=== PATIENT | male | born 1955 | race Caucasian/White ===

== ENCOUNTER 2020-04-14 10:39 | Outpatient (CLI) | payer MEDICARE, OTHER, SELFPAY ==
[2020-04-14 11:24] LABS: Blood Urea Nitrogen 28 mg/dL (9-20); Carbon Dioxide 27 mmol/L (22-30); Chloride 105 mmol/L (98-107); Estimated Glomerular Filt Rate > 60; Glucose 136 mg/dL (75-110); Potassium 3.6 mmol/L (3.4-5.0); Sodium 141 mmol/L (137-145)
[2020-04-14 11:33] LABS: Hemoglobin A1C 6.9 % (<5.7)
== END 2020-04-14 10:40 | disposition home or self-care (01) ==
PROVIDERS: PCP Internal Medicine; Visit Provider Internal Medicine
DX: E11.9 Type 2 diabetes mellitus without complications (principal)
CPT/HCPCS: 36415; 80048; 83036

== ENCOUNTER 2020-08-01 10:57 | Outpatient (CLI) | payer MEDICARE, SELFPAY ==
[2020-08-01 11:43] LABS: Basophils Percent Auto 0.4 % (0.2-1.2); Eosinophils Absolute Auto 0.1 K/mm3 (0-0.3); Eosinophils Percent Auto 2.6 % (0-4.4); Hematocrit 44.5 % (42.0-52.0); Hemoglobin 15.1 g/dL (14.0-18.0); Immature Granulocyte Absolute 0.02 K/mm3 (0.00-0.031); Immature Granulocyte Percent A 0.4 % (0-0.5); Lymphocytes Absolute Auto 0.91 K/mm3 (0.9-3.2); Lymphocytes Percent Auto 16.7 % (18.3-44.2); Mean Corpuscular HGB Conc 33.9 g/dl (32-36); Mean Corpuscular Hemoglobin 31.4 pg (26-34); Mean Corpuscular Volume 92.5 fl (80-100); Mean Platelet Volume 10.6 fl (7.4-10.4); Monocytes Absolute Auto 0.5 K/mm3 (0.1-0.6); Monocytes Percent Auto 8.2 % (2.6-8.5); Neutrophils Absolute Auto 3.9 K/mm3 (1.3-6.7); Neutrophils Percent Auto 71.7 % (45.5-73.1); Platelet Count Result 198 k/mm3 (150-375); Red Blood Count 4.81 M/mm3 (4.6-6.20); Red Cell Distribution Width 12.7 % (11.5-14.5); White Blood Count 5.5 K/mm3 (4.5-10.0)
[2020-08-01 11:51] LABS: Hemoglobin A1C 6.3 % (<5.7)
[2020-08-01 11:54] LABS: Alanine Aminotransferase 24 U/L (4-50); Albumin Level 4.3 g/dL (3.5-5.1); Alkaline Phosphatase 73 U/L (38-126); Anion Gap 6 mmol/L (8-16); Aspartate Amino Transferase 26 U/L (17-59); Bilirubin,Total 0.9 mg/dL (0.2-1.3); Blood Urea Nitrogen 16 mg/dL (9-20); Calcium 9.8 mg/dL (8.4-10.2); Carbon Dioxide 35 mmol/L (22-30); Chloride 102 mmol/L (98-107); Cholesterol 84 mg/dL (0-200); Estimated Glomerular Filt Rate > 60; Glucose 134 mg/dL (75-110); HDL Direct 27 mg/dL; Sodium 143 mmol/L (137-145); Triglycerides 108 mg/dL (<150)
[2020-08-01 12:05] LABS: LDL Cholesterol Direct 40 mg/dL
[2020-08-01 12:32] LABS: Creatinine Urine 55.8 mg/dL
[2020-08-01 12:38] LABS: MALB Creatinine Ratio 16.5 mg/g (0-30); Microalbumin Urine Random 9.2 mg/L (0-16.7)
== END 2020-08-01 10:58 | disposition home or self-care (01) ==
PROVIDERS: PCP Internal Medicine; Visit Provider Clinical Nurse Specialist
DX: E11.9 Type 2 diabetes mellitus without complications (principal); I10 Essential (primary) hypertension
CPT/HCPCS: 36415; 80053; 80061; 82043; 83036; 85025

== ENCOUNTER 2020-11-10 09:53 | Outpatient (CLI) | payer MEDICARE, SELFPAY ==
[2020-11-10 10:34] LABS: Creatinine Urine 116.9 mg/dL; Total Protein Urine Random 9 mg/dL; Ur Ttl Prot Creatinine Ratio 0.08 mg/mg (0-0.20)
[2020-11-10 10:54] LABS: Albumin Level 4.3 g/dL (3.5-5.1); Anion Gap 7 mmol/L (8-16); Blood Urea Nitrogen 15 mg/dL (9-20); Calcium 9.1 mg/dL (8.4-10.2); Carbon Dioxide 33 mmol/L (22-30); Chloride 103 mmol/L (98-107); Estimated Glomerular Filt Rate > 60; Glucose 142 mg/dL (75-110); Phosphorus 3.9 mg/dL (2.5-4.5); Potassium 3.5 mmol/L (3.4-5.0); Sodium 143 mmol/L (137-145)
[2020-11-10 12:53] LABS: Hemoglobin A1C 6.8 % (<5.7)
== END 2020-11-10 09:54 | disposition home or self-care (01) ==
LOC: ANHLAB 09:54
PROVIDERS: PCP Internal Medicine; Visit Provider Nurse Practitioner
DX: E11.9 Type 2 diabetes mellitus without complications (principal); N28.1 Cyst of kidney, acquired; I10 Essential (primary) hypertension
CPT/HCPCS: 36415; 80069; 82570; 83036; 84156

== ENCOUNTER 2021-02-13 08:40 | Outpatient (CLI) | payer MEDICARE, SELFPAY ==
[2021-02-13 09:43] LABS: Hemoglobin A1C 6.5 % (<5.7)
== END 2021-02-13 08:41 | disposition home or self-care (01) ==
PROVIDERS: PCP Internal Medicine; Referring Provider Internal Medicine Nephrology; Visit Provider Internal Medicine
DX: E11.9 Type 2 diabetes mellitus without complications (principal)
CPT/HCPCS: 36415; 83036

== ENCOUNTER 2021-05-21 11:32 | Outpatient (CLI) | payer MEDICARE, SELFPAY ==
[2021-05-21 12:14] LABS: Hematocrit 46.7 % (42.0-52.0); Hemoglobin 15.3 g/dL (14.0-18.0); Mean Corpuscular HGB Conc 32.8 g/dl (32-36); Mean Corpuscular Hemoglobin 30.2 pg (26-34); Mean Corpuscular Volume 92.1 fl (80-100); Mean Platelet Volume 11.1 fl (7.4-10.4); Platelet Count Result 168 k/mm3 (150-375); Red Blood Count 5.07 M/mm3 (4.6-6.20); Red Cell Distribution Width 13.4 % (11.5-14.5); White Blood Count 6.2 K/mm3 (4.5-10.0)
[2021-05-21 12:35] LABS: Blood Urea Nitrogen 21 mg/dL (9-20); Calcium 9.4 mg/dL (8.4-10.2); Chloride 104 mmol/L (98-107); Estimated Glomerular Filt Rate > 60; Glucose 113 mg/dL (65-110); Potassium 4.5 mmol/L (3.4-5.0); Sodium 139 mmol/L (137-145)
[2021-05-21 18:04] LABS: Hemoglobin A1C 6.5 % (<5.7)
[2021-05-21 21:50] LABS: Anion Gap 3 mmol/L (8-16); Carbon Dioxide 32 mmol/L (22-30)
[2021-05-21 22:16] LABS: Prostate Specific Antigen 1.9 ng/mL (< OR = 4.0)
== END 2021-05-21 11:33 | disposition home or self-care (01) ==
LOC: ANHLAB 11:36
PROVIDERS: PCP Internal Medicine; Visit Provider Internal Medicine
DX: E11.9 Type 2 diabetes mellitus without complications (principal); Z12.5 Encounter for screening for malignant neoplasm of prostate; I10 Essential (primary) hypertension
CPT/HCPCS: 36415; 80048; 83036; 84153; 85027; G0103

== ENCOUNTER 2021-06-07 10:13 | Outpatient (CLI) | payer MEDICARE, SELFPAY ==
[2021-06-07 11:27] LABS: Cholesterol 95 mg/dL (0-200); HDL Direct 34 mg/dL; Triglycerides 83 mg/dL (<150)
[2021-06-07 11:39] LABS: LDL Cholesterol Direct 37 mg/dL
== END 2021-06-07 10:14 | disposition home or self-care (01) ==
PROVIDERS: PCP Internal Medicine; Visit Provider Clinical Nurse Specialist
DX: E78.49 Other hyperlipidemia (principal)
CPT/HCPCS: 36415; 80061

== ENCOUNTER 2021-08-22 09:02 | Outpatient (CLI) | payer MEDICARE, SELFPAY ==
[2021-08-22 10:01] LABS: Anion Gap 8 mmol/L (8-16); Blood Urea Nitrogen 20 mg/dL (9-20); Calcium 8.9 mg/dL (8.4-10.2); Carbon Dioxide 29 mmol/L (22-30); Chloride 102 mmol/L (98-107); Estimated Glomerular Filt Rate > 60; Glucose 115 mg/dL (65-110); Phosphorus 3.8 mg/dL (2.5-4.5); Potassium 3.5 mmol/L (3.4-5.0); Sodium 139 mmol/L (137-145)
[2021-08-22 10:24] LABS: Total Protein Urine Random < 5 mg/dL
[2021-08-22 11:05] LABS: Creatinine Urine 142.8 mg/dL
[2021-08-22 11:53] LABS: Ur Ttl Prot Creatinine Ratio < 0.04 mg/mg (0-0.20)
== END 2021-08-22 09:03 | disposition home or self-care (01) ==
LOC: ANHLAB 09:05
PROVIDERS: PCP Internal Medicine; Visit Provider Internal Medicine
DX: N28.1 Cyst of kidney, acquired (principal); I10 Essential (primary) hypertension; E11.9 Type 2 diabetes mellitus without complications
CPT/HCPCS: 36415; 80069; 82570; 84156

== ENCOUNTER 2021-11-28 11:40 | Outpatient (CLI) | payer MEDICARE, SELFPAY ==
[2021-11-28 13:07] LABS: Hemoglobin A1C 6.9 % (<5.7)
== END 2021-11-28 11:41 | disposition home or self-care (01) ==
PROVIDERS: PCP Internal Medicine; Visit Provider Internal Medicine
DX: E11.9 Type 2 diabetes mellitus without complications (principal)
CPT/HCPCS: 36415; 83036

== ENCOUNTER 2022-05-28 11:59 | Outpatient (CLI) | payer MEDICARE, SELFPAY ==
[2022-05-28 13:10] LABS: Basophils Percent Auto 0.3 % (0.2-1.2); Eosinophils Absolute Auto 0.2 K/mm3 (0-0.3); Eosinophils Percent Auto 2.8 % (0-4.4); Hematocrit 44.5 % (42.0-52.0); Hemoglobin 15.1 g/dL (14.0-18.0); Immature Granulocyte Absolute 0.03 K/mm3 (0.00-0.031); Immature Granulocyte Percent A 0.5 % (0-0.5); Lymphocytes Percent Auto 16.2 % (18.3-44.2); Mean Corpuscular HGB Conc 33.9 g/dl (32-36); Mean Corpuscular Hemoglobin 31.1 pg (26-34); Mean Corpuscular Volume 91.8 fl (80-100); Mean Platelet Volume 11.2 fl (7.4-10.4); Monocytes Absolute Auto 0.5 K/mm3 (0.1-0.6); Monocytes Percent Auto 8.3 % (2.6-8.5); Neutrophils Absolute Auto 4.5 K/mm3 (1.3-6.7); Neutrophils Percent Auto 71.9 % (45.5-73.1); Platelet Count Result 188 k/mm3 (150-375); Red Blood Count 4.85 M/mm3 (4.6-6.20); Red Cell Distribution Width 12.8 % (11.5-14.5); White Blood Count 6.2 K/mm3 (4.5-10.0)
[2022-05-28 13:23] LABS: Alanine Aminotransferase 26 U/L (6-50); Albumin Level 4.2 g/dL (3.5-5.1); Alkaline Phosphatase 81 U/L (38-126); Anion Gap 8 mmol/L (8-16); Aspartate Amino Transferase 23 U/L (17-59); Bilirubin,Total 0.8 mg/dL (0.2-1.3); Blood Urea Nitrogen 16 mg/dL (9-20); Calcium 9.5 mg/dL (8.4-10.2); Carbon Dioxide 31 mmol/L (22-30); Chloride 99 mmol/L (98-107); Cholesterol 76 mg/dL (0-200); Estimated Glomerular Filt Rate > 60; Glucose 163 mg/dL (65-110); HDL Direct 31 mg/dL; Potassium 3.6 mmol/L (3.4-5.0); Sodium 138 mmol/L (137-145); Triglycerides 64 mg/dL (<150)
[2022-05-28 13:29] LABS: Creatinine Urine 79.1 mg/dL; Total Protein Urine Random 6 mg/dL; Ur Ttl Prot Creatinine Ratio 0.08 mg/mg (0-0.20)
[2022-05-28 13:37] LABS: Albumin Level 4.3 g/dL (3.5-5.1); Anion Gap 10 mmol/L (8-16); Blood Urea Nitrogen 16 mg/dL (9-20); Calcium 9.3 mg/dL (8.4-10.2); Carbon Dioxide 31 mmol/L (22-30); Chloride 99 mmol/L (98-107); Estimated Glomerular Filt Rate > 60; Glucose 163 mg/dL (65-110); Potassium 3.6 mmol/L (3.4-5.0); Sodium 140 mmol/L (137-145)
[2022-05-28 13:38] LABS: LDL Cholesterol Direct < 30 mg/dL
[2022-05-28 13:40] LABS: Hemoglobin A1C 7.4 % (<5.7)
== END 2022-05-28 12:00 | disposition home or self-care (01) ==
PROVIDERS: PCP Internal Medicine; Referring Provider Internal Medicine Nephrology; Visit Provider Internal Medicine
DX: I10 Essential (primary) hypertension (principal); N28.1 Cyst of kidney, acquired; E11.9 Type 2 diabetes mellitus without complications; Z12.5 Encounter for screening for malignant neoplasm of prostate
CPT/HCPCS: 36415; 80053; 80061; 80069; 82570; 83036; 84153; 84156; 85025; G0103

== ENCOUNTER 2022-09-16 11:03 | Outpatient (CLI) | payer MEDICARE, SELFPAY ==
[2022-09-16 11:58] LABS: Hemoglobin A1C 8.6 % (<5.7)
== END 2022-09-16 11:04 | disposition home or self-care (01) ==
PROVIDERS: PCP Internal Medicine; Visit Provider Internal Medicine
DX: E11.9 Type 2 diabetes mellitus without complications (principal)
CPT/HCPCS: 36415; 83036

== ENCOUNTER 2022-11-19 10:47 | Outpatient (CLI) | payer MEDICARE, SELFPAY ==
[2022-11-19 11:07] LABS: Creatinine Urine 150.7 mg/dL; Total Protein Urine Random 12 mg/dL; Ur Ttl Prot Creatinine Ratio 0.08 mg/mg (0-0.20)
[2022-11-19 11:12] LABS: Albumin Level 4.5 g/dL (3.5-5.1); Anion Gap 7 mmol/L (8-16); Blood Urea Nitrogen 13 mg/dL (9-20); Calcium 9.1 mg/dL (8.4-10.2); Carbon Dioxide 30 mmol/L (22-30); Chloride 103 mmol/L (98-107); Estimated Glomerular Filt Rate > 60; Glucose 170 mg/dL (65-110); Phosphorus 4.1 mg/dL (2.5-4.5); Potassium 3.5 mmol/L (3.4-5.0); Sodium 140 mmol/L (137-145)
== END 2022-11-19 10:48 | disposition home or self-care (01) ==
LOC: ANHLAB 10:48
PROVIDERS: PCP Internal Medicine; Visit Provider Internal Medicine Nephrology
DX: Q61.3 Polycystic kidney, unspecified (principal)
CPT/HCPCS: 36415; 80069; 82570; 84156

== ENCOUNTER 2022-12-18 11:49 | Outpatient (CLI) | payer MEDICARE, SELFPAY ==
[2022-12-18 20:33] LABS: Hemoglobin A1C 7.4 % (<5.7)
== END 2022-12-18 11:50 | disposition home or self-care (01) ==
LOC: ANHGOSHLAB 11:50
PROVIDERS: PCP Internal Medicine; Visit Provider Nurse Practitioner
DX: E11.9 Type 2 diabetes mellitus without complications (principal)
CPT/HCPCS: 36415; 83036

== ENCOUNTER 2023-03-26 08:12 | Outpatient (CLI) | payer MEDICARE, SELFPAY ==
[2023-03-26 17:37] LABS: Basophils Percent Auto 0.2 % (0.2-1.2); Eosinophils Absolute Auto 0.2 K/mm3 (0-0.3); Eosinophils Percent Auto 2.9 % (0-4.4); Hematocrit 43.8 % (42.0-52.0); Hemoglobin 14.8 g/dL (14.0-18.0); Immature Granulocyte Absolute 0.02 K/mm3 (0.00-0.031); Immature Granulocyte Percent A 0.4 % (0-0.5); Lymphocytes Absolute Auto 0.77 K/mm3 (0.9-3.2); Lymphocytes Percent Auto 14.1 % (18.3-44.2); Mean Corpuscular HGB Conc 33.8 g/dl (32-36); Mean Corpuscular Hemoglobin 30.6 pg (26-34); Mean Corpuscular Volume 90.7 fl (80-100); Mean Platelet Volume 11.2 fl (7.4-10.4); Monocytes Absolute Auto 0.4 K/mm3 (0.1-0.6); Neutrophils Absolute Auto 4.1 K/mm3 (1.3-6.7); Neutrophils Percent Auto 74.4 % (45.5-73.1); Platelet Count Result 209 k/mm3 (150-375); Red Blood Count 4.83 M/mm3 (4.6-6.20); Red Cell Distribution Width 12.9 % (11.5-14.5); White Blood Count 5.5 K/mm3 (4.5-10.0)
[2023-03-26 20:26] LABS: Albumin Level 3.9 g/dL (3.5-5.1); Anion Gap 6 mmol/L (8-16); Blood Urea Nitrogen 21 mg/dL (9-20); Calcium 8.9 mg/dL (8.4-10.2); Carbon Dioxide 31 mmol/L (22-30); Chloride 102 mmol/L (98-107); Estimated Glomerular Filt Rate > 60; Glucose 111 mg/dL (65-110); Phosphorus 3.9 mg/dL (2.5-4.5); Potassium 3.2 mmol/L (3.4-5.0); Sodium 139 mmol/L (137-145)
[2023-03-26 20:47] LABS: Alanine Aminotransferase 20 U/L (6-50); Albumin Level 3.9 g/dL (3.5-5.1); Alkaline Phosphatase 71 U/L (38-126); Anion Gap 9 mmol/L (8-16); Aspartate Amino Transferase 24 U/L (17-59); Bilirubin,Total 0.7 mg/dL (0.2-1.3); Blood Urea Nitrogen 21 mg/dL (9-20); Calcium 8.8 mg/dL (8.4-10.2); Carbon Dioxide 28 mmol/L (22-30); Chloride 102 mmol/L (98-107); Cholesterol 67 mg/dL (0-200); Estimated Glomerular Filt Rate > 60; Glucose 114 mg/dL (65-110); HDL Direct 25 mg/dL; Potassium 3.2 mmol/L (3.4-5.0); Sodium 139 mmol/L (137-145); Triglycerides 93 mg/dL (<150)
[2023-03-26 21:42] LABS: Creatinine Urine 105.6 mg/dL
[2023-03-26 22:02] LABS: Total Protein Urine Random < 5 mg/dL; Ur Ttl Prot Creatinine Ratio < 0.05 mg/mg (0-0.20)
[2023-03-26 22:04] LABS: LDL Cholesterol Direct 30 mg/dL
[2023-03-26 22:17] LABS: Hemoglobin A1C 5.9 % (<5.7)
== END 2023-03-26 08:13 | disposition home or self-care (01) ==
LOC: ANHGOSHLAB 08:14
PROVIDERS: Internal Medicine Nephrology; PCP Internal Medicine; Visit Provider Internal Medicine
DX: E11.65 Type 2 diabetes mellitus with hyperglycemia (principal); I10 Essential (primary) hypertension; N28.1 Cyst of kidney, acquired
CPT/HCPCS: 36415; 80053; 80061; 80069; 82570; 83036; 84156; 85025

== ENCOUNTER 2023-06-13 09:13 | Outpatient (CLI) | payer MEDICARE, SELFPAY ==
[2023-06-13 09:53] LABS: Albumin Level 3.8 g/dL (3.5-5.1); Anion Gap 8 mmol/L (8-16); Blood Urea Nitrogen 18 mg/dL (9-20); Calcium 8.7 mg/dL (8.4-10.2); Carbon Dioxide 29 mmol/L (22-30); Chloride 102 mmol/L (98-107); Estimated Glomerular Filt Rate > 60; Glucose 123 mg/dL (65-110); Phosphorus 3.7 mg/dL (2.5-4.5); Potassium 3.3 mmol/L (3.4-5.0); Sodium 139 mmol/L (137-145)
[2023-06-13 10:16] LABS: Creatinine Urine 126.1 mg/dL
[2023-06-13 10:18] LABS: Total Protein Urine Random < 5 mg/dL; Ur Ttl Prot Creatinine Ratio < 0.04 mg/mg (0-0.20)
== END 2023-06-13 09:14 | disposition home or self-care (01) ==
PROVIDERS: PCP Internal Medicine; Visit Provider Internal Medicine Nephrology
DX: I10 Essential (primary) hypertension (principal); N28.1 Cyst of kidney, acquired
CPT/HCPCS: 36415; 80069; 82570; 84156

== ENCOUNTER 2023-12-19 11:05 | Outpatient (CLI) | payer MEDICARE, SELFPAY ==
[2023-12-19 14:36] LABS: Albumin Level 3.8 g/dL (3.5-5.1); Anion Gap 2 mmol/L (8-16); Blood Urea Nitrogen 16 mg/dL (9-20); Carbon Dioxide 34 mmol/L (22-30); Chloride 105 mmol/L (98-107); Estimated Glomerular Filt Rate > 60; Glucose 118 mg/dL (65-110); Phosphorus 3.8 mg/dL (2.5-4.5); Potassium 3.9 mmol/L (3.4-5.0); Sodium 141 mmol/L (137-145)
[2023-12-19 14:42] LABS: Alanine Aminotransferase 24 U/L (6-50); Albumin Level 3.8 g/dL (3.5-5.1); Alkaline Phosphatase 83 U/L (38-126); Anion Gap 4 mmol/L (8-16); Aspartate Amino Transferase 50 U/L (17-59); Bilirubin,Total 0.8 mg/dL (0.2-1.3); Blood Urea Nitrogen 16 mg/dL (9-20); Calcium 9.2 mg/dL (8.4-10.2); Carbon Dioxide 32 mmol/L (22-30); Chloride 105 mmol/L (98-107); Cholesterol 65 mg/dL (0-200); Estimated Glomerular Filt Rate > 60; Glucose 120 mg/dL (65-110); HDL Direct 28 mg/dL; Magnesium 2.1 mg/dL (1.6-2.3); Sodium 141 mmol/L (137-145); Triglycerides 65 mg/dL (<150)
[2023-12-19 14:50] LABS: Basophils Percent Auto 0.5 % (0.2-1.2); Eosinophils Absolute Auto 0.3 K/mm3 (0-0.3); Eosinophils Percent Auto 4.5 % (0-4.4); Hematocrit 45.7 % (42.0-52.0); Hemoglobin 14.9 g/dL (14.0-18.0); Immature Granulocyte Absolute 0.03 K/mm3 (0.00-0.031); Immature Granulocyte Percent A 0.5 % (0-0.5); Lymphocytes Absolute Auto 0.85 K/mm3 (0.9-3.2); Lymphocytes Percent Auto 14.3 % (18.3-44.2); Mean Corpuscular HGB Conc 32.6 g/dl (32-36); Mean Corpuscular Hemoglobin 30.7 pg (26-34); Mean Corpuscular Volume 94.2 fl (80-100); Monocytes Absolute Auto 0.6 K/mm3 (0.1-0.6); Monocytes Percent Auto 9.9 % (2.6-8.5); Neutrophils Absolute Auto 4.2 K/mm3 (1.3-6.7); Neutrophils Percent Auto 70.3 % (45.5-73.1); Platelet Count Result 203 k/mm3 (150-375); Red Blood Count 4.85 M/mm3 (4.6-6.20); Red Cell Distribution Width 13.1 % (11.5-14.5); White Blood Count 5.9 K/mm3 (4.5-10.0)
[2023-12-19 14:51] LABS: Creatinine Urine 79.1 mg/dL; Total Protein Urine Random 7 mg/dL; Ur Ttl Prot Creatinine Ratio 0.09 mg/mg (0-0.20)
[2023-12-19 15:08] LABS: Prostate Specific Antigen 2.7 ng/mL (< OR = 4.0)
[2023-12-19 15:44] LABS: LDL Cholesterol Direct 35 mg/dL
[2023-12-19 16:02] LABS: Hemoglobin A1C 6.1 % (<5.7)
[2023-12-25 20:36] LABS: Apolipoprotein B 35 mg/dL (<90)
== END 2023-12-19 11:06 | disposition home or self-care (01) ==
PROVIDERS: PCP Internal Medicine; Visit Provider Internal Medicine Nephrology
DX: E11.9 Type 2 diabetes mellitus without complications (principal); Z12.5 Encounter for screening for malignant neoplasm of prostate; I10 Essential (primary) hypertension; E87.6 Hypokalemia; E11.65 Type 2 diabetes mellitus with hyperglycemia; N28.1 Cyst of kidney, acquired
CPT/HCPCS: 36415; 80053; 80061; 80069; 82172; 82570; 83036; 83735; 84153; 84156; 85025; G0103

== ENCOUNTER 2024-07-06 10:17 | Outpatient (CLI) | payer MEDICARE, SELFPAY ==
[2024-07-06 14:11] LABS: Basophils Percent Auto 0.6 % (0.2-1.2); Eosinophils Absolute Auto 0.3 K/mm3 (0-0.3); Hemoglobin 15.2 g/dL (14.0-18.0); Immature Granulocyte Absolute 0.02 K/mm3 (0.00-0.031); Immature Granulocyte Percent A 0.3 % (0-0.5); Lymphocytes Absolute Auto 1.02 K/mm3 (0.9-3.2); Lymphocytes Percent Auto 14.7 % (18.3-44.2); Mean Corpuscular HGB Conc 32.3 g/dl (32-36); Mean Corpuscular Hemoglobin 30.5 pg (26-34); Mean Corpuscular Volume 94.2 fl (80-100); Mean Platelet Volume 10.9 fl (7.4-10.4); Monocytes Absolute Auto 0.6 K/mm3 (0.1-0.6); Monocytes Percent Auto 7.9 % (2.6-8.5); Neutrophils Percent Auto 72.5 % (45.5-73.1); Platelet Count Result 225 k/mm3 (150-375); Red Blood Count 4.99 M/mm3 (4.6-6.20); Red Cell Distribution Width 13.6 % (11.5-14.5); White Blood Count 6.9 K/mm3 (4.5-10.0)
[2024-07-06 14:19] LABS: Alanine Aminotransferase 20 U/L (6-50); Albumin Level 3.9 g/dL (3.5-5.1); Alkaline Phosphatase 75 U/L (38-126); Anion Gap 7 mmol/L (4-12); Aspartate Amino Transferase 55 U/L (17-59); Bilirubin,Total 0.7 mg/dL (0.2-1.3); Blood Urea Nitrogen 20 mg/dL (9-20); Calcium 9.1 mg/dL (8.4-10.2); Carbon Dioxide 31 mmol/L (22-30); Chloride 103 mmol/L (98-107); Estimated Glomerular Filt Rate > 60; Glucose 100 mg/dL (65-110); Potassium 3.2 mmol/L (3.4-5.0); Sodium 141 mmol/L (137-145)
[2024-07-06 16:00] LABS: Hemoglobin A1C 5.9 % (<5.7)
== END 2024-07-06 10:18 | disposition home or self-care (01) ==
PROVIDERS: PCP Internal Medicine; Visit Provider Internal Medicine
DX: E11.9 Type 2 diabetes mellitus without complications (principal); N28.1 Cyst of kidney, acquired; I10 Essential (primary) hypertension
CPT/HCPCS: 36415; 80053; 83036; 85025

== ENCOUNTER 2024-11-18 09:58 | Outpatient (CLI) | payer MEDICARE, SELFPAY ==
--- OUTSIDE RECORDS SUMMARY | 2024-11-18 10:28 | XMS_ITS | Referral Summary ---
Author Organization [facility] Orthopedic Outpa [facility] Address [address] [place] [address] Care Team Providers Care Tonguer Name Role Phone Loki Singh DO Primary Care Provider [phone] Allergies Active Allergy Reactions Criticality Noted Date Comments Nebivolol Itching,Unknown Low 11/28/2019 Medications amLODIPine (NORVASC) 5 mg tabletIndicatio ns:hypertension Take 5 mg by mouth every morning 0 Active atorvastatin (LIPITOR) 10 mg tabletIndicatio ns:hyperlipidem ia Take 10 mg by mouth every morning 0 Active hydroCHLOROthia zide (HYDRODIURIL) 25 mg tabletIndicatio ns:hypertension Take 25 mg by mouth every morning 0 Active losartan (COZAAR) 100 mg tablet Take 100 mg by mouth every morning 0 Active metFORMIN (GLUCOPHAGE) 1,000 mg tabletIndicatio ns:type 2 diabetes mellitus Take 1,000 mg by mouth daily with breakfast 6 Active multivitamin-mi nerals-lutein tablet Take 1 tablet by mouth every morning Active Active Problems Problem Noted Date Diagnosed Date Secondary localized osteoarthrosis of ankle and foot 01/14/2022 Osteoarthritis of hip 01/14/2022 Hypertension 01/14/2022 Hyperlipidemia 01/14/2022 Diabetes mellitus 01/14/2022 Autosomal dominant polycystic kidney disease 08/2022 Acquired polycystic kidney disease 01/14/2022 Primary localized osteoarthrosis of ankle and fo ot 08/27/2021 Disorder of ankle joint 11/28/2020 Overview (01/14/2022): Added automatically from request for surgery [id number] Added automatically from request for surgery [id number] Ankle pain 11/28/2020 Overview (01/14/2022): Added automatically from request for surgery [id number] Added automatically from request for surgery [id number] Viral wart 04/25/2016 Other melanin hyperpigmentation 04/25/2016 Nevus, non-neoplastic 04/25/2016 Neoplasm of uncertain behavior of skin 6 Inflamed seborrheic keratosis 04/25/2016 Immunizations Name Administration Dates Next Due Influenza, Unspecified 07/26/2020 Social History Tobacco Use Types Packs/Day Years Used Date Smoking Tobacco: Former Cigars Q uit: 2017 Smokeless Tobacco: Never Alcohol Use Standard Drinks/Week Comments Yes 0 (1 standard drink = 0.6 oz pur e alcohol) AUDIT-C Answer Date Recorded Q1: How often do you have a drink containing alc ohol? Never 12/19/2020 Q2: How many drinks containi ng alcohol do you have on a typical day when you are drinking? 1 or 2 12/19/2020 Q3: How often do you have six or more drinks on one occasion? 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 [employer] Gender Identity Not on file Sexual Orientation Not on file Last Filed Vital Signs Vital Sign Reading Time Taken Comments Blood Pressure 155/97 12/27/2020 8:43 AM CDT ELISE Reynolds notified Pulse 86 12/27/2020 8:43 AM CDT Temperature 36.2 C (97.2 F) 12/27/2020 8:15 AM CDT Respiratory Rate 16 12/27/2020 8:15 AM CDT Oxygen Saturation 97% 12/27/2020 8:4 3 AM CDT Inhaled Oxygen Concentration - - Weight 100.7 kg (222 lb) 07/11/2021 10: 35 AM CDT Height 182.9 cm (6') 07/11/2021 10:35 AM CDT Body Mass Index 30.11 07/11/2021 10:35 AM CDT Plan of Treatment Not on file Medical Devices Implanted Type Area Roving Frame Tender Device Identifier Shelf Expiration Date Model / Serial / Lot [employer] [id number] Inbone Knee Right 5 Standard Tray Tibial - S.0 - [id number] Implanted:Qty: 1 on 12/26/2020 by Kurt Veliz MD at [facility] [employer] 12/18/[id number] / .0 / [id number] [employer] [id number] Inbone 18mm Base Ankle Stem Tibial Plasma - S.0 - [id number] Implanted:Qty: 1 on 12/26/2020 by Kurt Veliz MD at [facility] [employer] 12/03/[id number] / .0 / [id number] [employer] [id number] Inbone 16mm Mid Ankle Stem Tibial Plasma - S.0 - [id number] Implanted:Qty: 1 on 12/26/2020 by Kurt Veliz MD at [facility] [employer] 07/23/[id number] / .0 / [id number] [employer] [id number] Inbone 16mm Mid Ankle Stem Tibial Plasma - S.0 - [id number] Implanted:Qty: 1 on 12/26/2020 by Kurt Veliz MD at [facility] [employer] 07/24/[id number] / .0 / [id number] [employer] [id number] Inbone 16mm Top Ankle Stem Tibial Plasma - S.0 - [id number] Implanted:Qty: 1 on 12/26/2020 by Kurt Veliz MD at [facility] Medicine [employer] 10/23/[id number] / .0 / [id number] [employer] [id number] Ankle 1 Large 10mm Stem Talar - S.0 - [id number] Implanted:Qty: 1 on 12/26/2020 by Kurt Veliz MD at [facility] [employer] [id number] 10/08/[id number] / .0 / [id number] [employer] [id number] Inbone Sulcus Ankle 4 Dome Component Talar - S.0 - [id number] Implanted:Qty: 1 on 12/26/2020 by Kurt Veliz MD at [facility] [employer] [id number] 10/26/[id number] / .0 / [id number] [employer] [id number] Inbone 12mm Ankle 4+ Implant Fixation Everlast - S.0 - [id number] Implanted:Qty: 1 on 12/26/2020 by Kurt Veliz MD at [facility] [employer] [id number] 01/01/[id number] / .0 / [id number] Procedures Procedure Name Priority Date/Time Associated Diagnosis Comments HEMOGLOBIN A1C Routine 12/19/2020 11:53 AM CDT Preoperative testing from Last 3 Months or Most Recently Relevant to Health Maintenance Results * (ABNORMAL) Hemoglobin A1c (12/19/2020 11:53 AM CDT) Hgb A1C 6.7(H) 4.0 - 5.6 % [facility] Estimated Average Glucose 146 mg/dL [facility] Comment: The ADA recommends reporting an estimated Average Glucose (eAG) with all Hemoglobin A1c results using the equation derived from a study of 507 normal and diabetic adults. Minority populations were underrepresented and children were not included. (Diabetes Care 31:6902-1590, 2008). The eAG is not equivalent to a fasting glucose. Blood specimen (specimen) 12/19/2020 11:53 AM CDT 12/19/2020 1:45 PM CDT Gladys Melgoza NP LAB BLOOD ORDERABLES Final Re sult [facility] Department [place] [address] from Last 3 Months or Most Recently Relevant to Health Maintenance Insurance [facility] MEDICARE AET MEDICARE Advance Directives For more information, please contact: [phone] * Full Code (Latest Code Status on File) Date Activated Date Inactivated Comments 12/26/2020 4:38 PM 12/27/2020 7:53 PM Care Teams Tonguer Relationship Specialty Start Date End Date Loki Singh DO PCP - General Internal Medicine 08/25/20
--- OUTSIDE RECORDS SUMMARY | 2024-11-18 10:28 | XMS_ITS | Clinical Summary ---
Author Organization [facility] Address [address] [place] [address] Phone Care Team Providers Care Cyber Operator Name Role Phone Loki Singh DO Primary Care Provider [phone] Allergies Active Allergy Reactions Criticality Noted Date Comments Nebivolol Unknown,Itching Low 11/28/2019 Medications Medication Sig Dispensed Refills Start Date End Date Status metFORMIN (GLUCOPHAGE) 1000 MG tablet 02/09/2016 Active atorvastatin (LIPITOR) 10 MG tablet Take 10 mg by mouth 1 (one) time each day Active hydroCHLOROthiazide (HYDRODIURIL) 25 MG tablet Take 25 mg by mouth 1 (one) time each day Active amLODIPine (NORVASC) 5 MG tablet Take 5 mg by mouth 1 (one) time each day 01/04/2020 Active losartan (COZAAR) 50 MG tablet Take 100 mg by mouth 1 (one) time each day 04/30/2022 Active Active Problems Problem Noted Date Diagnosed Date Counseling 08/27/2021 Localized, primary osteoarthritis of the ankle a nd/or foot 08/27/2021 Pain in limb 08/27/2021 Ankle pain 11/28/2020 Overview (02/14/2021): Added automatically from request for surgery [id number] Disorder of ankle joint 11/28/2020 Overview (02/14/2021): Added automatically from request for surgery [id number] Inflamed seborrheic keratosis 04/25/2016 Neoplasm of uncertain behavior of skin 6 Non-neoplastic nevus 04/25/2016 Other melanin hyperpigmentation 04/25/2016 Other seborrheic keratosis 04/25/2016 Viral wart 04/25/2016 Autosomal dominant polycystic kidney disease Diabetes mellitus Hyperlipidemia Hypertension Osteoarthritis Acquired polycystic kidney disease Immunizations Name Administration Dates Next Due Influenza, Injectable, Quadrivalent 06/20/2020 Influenza, Unspecified 07/26/2020 Sars-cov-2, Unspecified 03/27/2021 Family History Medical History Relation Comments Hypertension Father Hypertension Maternal Grandmother Polycystic kidney disease Neg Hx Relation Status Comments Father Maternal Grandmother Social History Tobacco Use Types Packs/Day Years Used Date Smoking Tobacco: Some Days Cigars Smokeless Tobacco: Never Tobacco Cessation:Ready to Q uit: No; Counseling Given: Yes Alcohol Use Standard Drinks/Week Comments Yes 0 (1 standard drink = 0.6 oz pur e alcohol) Sex and Gender Information Value Date Recorded Sex Assigned at Not on file Gender Identity Not on file Sexual Orientation Not on file Last Filed Vital Signs Vital Sign Reading Time Taken Comments Blood Pressure 130/70 06/05/2022 9:15 AM CDT Pulse - - Temperature 36.2 C (97.1 F) 06/05/2022 9:15 AM CDT Respiratory Rate 18 06/05/2022 9:15 AM CDT Oxygen Saturation - - Inhaled Oxygen Concentration - - Weight 105 kg (231 lb) 06/05/2022 9:15 AM CDT Height 185.4 cm (6' 1 ) 06/05/2022 9:15 AM CDT Body Mass Index 30.48 06/05/2022 9:15 AM CDT Plan of Treatment Health Maintenance Due Date Last Done Comments Pneumococcal PPSV23/PCV13 65 + Years / High and Highest Risk (1 of 4 - PCV) 1963 Diabetic Foot Exam 1967 Ophthalmology Exam 1967 Influenza Vaccine (#1) 2024 07/26/2020 Care Teams Cyber Operator Relationship Specialty Start Date End Date Loki Singh DO [address] [place] [address] PCP - General Internal Medicine 10/15/19
--- OUTSIDE RECORDS SUMMARY | 2024-11-18 10:28 | XMS_ITS | Clinical Summary ---
Author Organization [facility] Orthopedic Outpa [facility] Address [address] [place] [address] Care Team Providers Care Integration Director Name Role Phone Loki Singh DO Primary Care Provider [phone] Allergies Active Allergy Reactions Criticality Noted Date [...] (01/14/2022): Added automatically from request for surgery [id number] Added automatically from request for surgery [id number] Ankle pain 11/28/2020 Overview (01/14/2022): Added automatically from request for surgery [id number] Added automatically from request for surgery [id number] Viral wart 04/25/2016 Other melanin hyperpigmentation 04/25/2016 Nevus, non-neoplastic 04/25/2016 Neoplasm of uncertain behavior of skin 6 Inflamed seborrheic keratosis 04/25/2016 Immunizations Name Administration Dates Next Due Influenza, Unspecified 07/26/2020 Surgical History Surgery Date Site/Laterality Comments KNEE SURGERY Bilateral arthroplasty JOINT REPLACEMENT HIP SURGERY Right arthroplasty FOOT SURGERY COLONOSCOPY Medical History Medical History Date Comments Diabetes mellitus (HCC) Hypertension Chronic kidney disease DJD (degenerative joint disease) Hyperlipidemia 01/14/2022 Family History Medical History Relation Name Comments Anesthesia problems Neg Hx Social History Tobacco Use Types Packs/Day Years [...] on file 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 Gender Identity Not on file Sexual Orientation Not on file Obstetrics History Last Filed Vital Signs Vital Sign Reading [...] 07/11/2021 10:35 AM CDT Plan of Treatment Health Maintenance Due Date Last Done Comments Albumin Creatinine Ratio, Urine 1957 Colon Cancer Screening-Colonoscopy 1957 Depression Screening 1957 Fall Risk Assessment 1957 Hepatitis C Screening 1957 Prostate Cancer Screening-PSA 1957 eGFR 1957 Dilated Eye Exam 1957 Foot Exam 1957 Lipid Panel 1957 Pneumococcal vaccine 65+ (1 of 2 - PCV) 1963 DTaP/Tdap/Td Vaccine (1 - Tdap) 1968 Hepatitis B Screening 1975 Zoster Vaccine (1 of 2) 2007 Hemoglobin A1C 06/21/2021 12/19/2020 Abdominal Aortic Aneurysm (AAA) Screen 2022 Well Visit 65+ 2022 Influenza Vaccine (#1) 2024 07/26/2020, 2019 Medical Devices Implanted Type Area Advertising Inserter Device Identifier Shelf Expiration Date Model / Serial / Lot [employer] [id number] Inbone Knee Right 5 Standard Tray Tibial - S.0 - [id number] Implanted:Qty: 1 on 12/26/2020 by Kurt Veliz MD at [facility] [employer] 12/18/[id number] / .0 / [id number] [employer] [id number] Inbone 18mm Base Ankle Stem Tibial Plasma - S.0 - [id number] Implanted:Qty: 1 on 12/26/2020 by Kurt Veliz MD at [facility] [employer] 12/03/[id number] / .0 / [id number] [employer] [id number] Inbone 16mm Mid Ankle Stem Tibial Plasma - S.0 - [id number] Implanted:Qty: 1 on 12/26/2020 by Kurt Veliz MD at [facility] [employer] 07/23/[id number] / .0 / [id number] [employer] [id number] Inbone 16mm Mid Ankle Stem Tibial Plasma - S.0 - [id number] Implanted:Qty: 1 on 12/26/2020 by Kurt Veliz MD at [facility] [employer] 07/24/[id number] / .0 / [id number] [employer] [id number] Inbone 16mm Top Ankle Stem Tibial Plasma - S.0 - [id number] Implanted:Qty: 1 on 12/26/2020 by Kurt Veliz MD at [facility] [employer] 10/23/[id number] / .0 / [id number] [employer] [id number] Ankle 1 Large 10mm Stem Talar - S.0 - [id number] Implanted:Qty: 1 on 12/26/2020 by Kurt Veliz MD at [facility] [employer] [id number] 10/08/[id number] / .0 / [id number] [employer] [id number] Inbone Sulcus Ankle 4 Dome Component Talar - S.0 - [id number] Implanted:Qty: 1 on 12/26/2020 by Kurt Veliz MD at [facility] [employer] [id number] 10/26/[id number] / .0 / [id number] [employer] [id number] Inbone 12mm Ankle 4+ Implant Fixation Everlast - S.0 - [id number] Implanted:Qty: 1 on 12/26/2020 by Kurt Veliz MD at [facility] [email or web address] [facility] [id number] 01/01/2028 [id number] / .0 / [id number] Procedures Procedure Name Priority Date/Time Associated Diagnosis Comments HEMOGLOBIN A1C Routine 12/19/2020 11:53 AM CDT Preoperative testing from Last 3 Months or Most Recently Relevant to Health Maintenance Results * (ABNORMAL) Hemoglobin A1c (12/19/2020 11:53 AM CDT) Hgb A1C 6.7(H) 4.0 - 5.6 % [facility] Estimated Average Glucose 146 mg/dL [facility] Comment: The ADA recommends reporting an estimated Average Glucose (eAG) with all Hemoglobin A1c results using the equation derived from a study of 507 normal and diabetic adults. Minority populations were underrepresented and children were not included. (Diabetes Care 31:0540-5693, 2008). The eAG is not equivalent to a fasting glucose. Blood specimen (specimen) 12/19/2020 11:53 AM CDT 12/19/2020 1:45 PM CDT us Gladys Melgoza NP LAB BLOOD ORDERABLES Final Re sult [facility] Department [place] [address] from Last 3 Months or Most Recently Relevant to Health Maintenance [place] [address] [place] [address] AETNA MEDICARE Advance Directives For more information, please contact: [phone] * Full Code (Latest Code Status on File) Date Activated Date Inactivated Comments 12/26/2020 4:38 PM 12/27/2020 7:53 PM Care Teams Integration Director Relationship Specialty Start Date End Date Loki Singh DO PCP - General Internal Medicine 08/25/20
--- NOTE | 2024-11-18 10:55 | ECG_ITS ---
Test Date: 2024-11-18 11:07:12 Measurements Intervals [place] Rate: 65 P: 74 MO: 158 QRS: 10 QRSD: 121 T: 33 QT: 425 QTc: 442 Interpretive Statements SINUS RHYTHM RIGHT BUNDLE BRANCH BLOCK BASELINE ARTIFACT- I, II, III, AVR, AVL, AVF, V1-V6 ABNORMAL ECG No previous ECG available for comparison Electronically Signed On 11-18-2024 11:32:34 CHIEF OF HOSPITAL MEDICINE by Justice Nguyen D.O.
[2024-11-18 11:18] LABS: Basophils Percent Auto 0.3 % (0.2-1.2); Eosinophils Absolute Auto 0.1 K/mm3 (0-0.3); Eosinophils Percent Auto 1.7 % (0-4.4); Hematocrit 44.5 % (42.0-52.0); Hemoglobin 14.8 g/dL (14.0-18.0); Immature Granulocyte Absolute 0.02 K/mm3 (0.00-0.031); Immature Granulocyte Percent A 0.3 % (0-0.5); Lymphocytes Absolute Auto 0.75 K/mm3 (0.9-3.2); Lymphocytes Percent Auto 10.9 % (18.3-44.2); Mean Corpuscular HGB Conc 33.3 g/dl (32-36); Mean Corpuscular Hemoglobin 30.5 pg (26-34); Mean Corpuscular Volume 91.8 fl (80-100); Mean Platelet Volume 10.2 fl (7.4-10.4); Monocytes Absolute Auto 0.6 K/mm3 (0.1-0.6); Monocytes Percent Auto 8.9 % (2.6-8.5); Neutrophils Absolute Auto 5.4 K/mm3 (1.3-6.7); Neutrophils Percent Auto 77.9 % (45.5-73.1); Platelet Count Result 219 k/mm3 (150-375); Red Blood Count 4.85 M/mm3 (4.6-6.20); Red Cell Distribution Width 12.8 % (11.5-14.5); White Blood Count 6.9 K/mm3 (4.5-10.0)
[2024-11-18 11:28] LABS: Albumin Level 4.1 g/dL (3.5-5.1)
[2024-11-18 11:32] LABS: Anion Gap 7 mmol/L (4-12); Blood Urea Nitrogen 18 mg/dL (9-20); Calcium 9.3 mg/dL (8.4-10.2); Carbon Dioxide 32 mmol/L (22-30); Chloride 102 mmol/L (98-107); Estimated Glomerular Filt Rate > 60; Glucose 102 mg/dL (65-110); Potassium 3.8 mmol/L (3.4-5.0); Sodium 141 mmol/L (137-145)
[2024-11-18 11:33] LABS: Prothrombin Time 13.4 Seconds (11.1-14.7)
[2024-11-18 11:34] LABS: Partial Thromboplastin Time 30.2 Seconds (22.3-36.8)
[2024-11-18 11:35] LABS: Hemoglobin A1C 5.9 % (<5.7)
[2024-11-18 12:34] LABS: MRSA (PCR) NOT DETECTED (NOT DETECTE)
[2024-11-18 19:13] LABS: Urine Cotinine NEGATIVE
== END 2024-11-18 09:59 | disposition home or self-care (01) ==
PROVIDERS: Anesthesiology; PCP Internal Medicine; Visit Provider Orthopaedic Surgery
DX: Z01.818 Encounter for other preprocedural examination (principal); M16.12 Unilateral primary osteoarthritis, left hip; N28.1 Cyst of kidney, acquired; E11.65 Type 2 diabetes mellitus with hyperglycemia
CPT/HCPCS: 36415; 80048; 80307; 82040; 83036; 85025; 85610; 85730; 86850; 86900; 86901; 87641; 93005

== ENCOUNTER 2024-12-01 00:05 | Day surgery (SDC) | payer MEDICARE, SELFPAY ==
--- NOTE | 2024-11-18 10:03 | PC.NURSE ---
Report to the Outpatient Waiting Room, entrance under the green pavilion located off [facility], at time __6 AM____ on date _12/01/24 . Planned Procedure Time: __7:30 AM .? Time changes happen often and if your time is changed the preop area will call you the afternoon before. - You and your visitor will be asked to self-screen and do not enter if you have any COVID symptoms. Please call surgeon if you need to reschedule. - A mask is optional within the hospital at this time. Patients may have clear liquids (water, carbonated beverages, clear teas, apple juice) until 3 hours prior to surgery( 4:30 AM) with a maximum of 20 ounces. - No food from midnight until time of surgery and no smoking, or chewing tobacco (or any form of nicotine). No chewing gum, candy or mints. - Take only the following medications with a SIP of water on the morning of surgery: ___AMLODIPINE DO NOT STOP ANY OF YOUR OTHER PRESCRIPTION MEDICATIONS PRIOR TO SURGERY EXCEPT THE FOLLOWING Hold all vitamins and supplements for 3 days per anesthesiologist. LAST DOSE 11/27/24 Medications to discontinue per physician ___IBUPROFEN PER DR MAYA Please no make-up, nail latvian, hairspray, perfume, deodorant, or body powder the day of surgery.? No jewelry (including any body piercings) or valuables the day of surgery, leave them at home.? Please take a shower or bath the night before, or the morning of, surgery with an antibacterial soap.? Wear comfortable, loose fitting clothing.? Children are encouraged to wear pajamas. - Jewelry must be removed prior to entering the operating room.? Rings and piercings that are not removed may be cut off. - The hospital will not accept responsibility for valuables.? - Please leave all valuables, including medications, at home the day of surgery. If you are going home after surgery, a licensed sales driver must drive you home.? - NO public transportation without another adult if you receive anesthesia. - We recommend that an adult stay with you for 24 hours following discharge. - We also recommend that you do not drive, make important decision, drink alcoholic beverages, or take any drugs that were not prescribed by your health care provider for at least 24 hours after your discharge time. Follow any additional instructions given to you from your surgeon. VERBAL AND WRITTEN instructions given to __PATIENT and asked if any additional questions and then verbalized understanding. Patient advised to call surgeon office or pre surgery nurse liaison [phone] if any additional questions.
[2024-11-18 10:09] VITALS: BMI 26.4
[2024-11-18 10:55] VITALS: BP 146/91; PULSE 73; RESP 18; TEMP 36.7; O2SAT 97
--- NOTE | 2024-11-25 07:08 | P.HP_ITS ---
H&P: HPI History of Present Illness Date/Time: 11/25/24 07:08 Chief Complaint: Patient has painful left the hip. He has hgpa-[id number] arthritis of the left hip. He has failed conservative treatment and would like to consider hip replacement surgery. He has had hip replacement surgery on the right and done well. Review of Systems Musculoskeletal: Musculoskeletal: Reports arthralgias, Reports joint swelling and Reports stiffness Neurologic: Reports abnormal gait [facility] Past Medical History Medical History DM w/o complication type II Diabetes mellitus with hyperglycemia Essential hypertension Hyperlipidemia due to dietary fat intake Hypertension Polycystic kidney disease Diabetes mellitus Surgical History Surgical History Status post right ankle joint replacement History of ankle surgery (~12/26/20) Total knee replacement status Family History Family History Mother Patient's mother is in good health Social History Social History Smoking status: Never smoker Tobacco type: cigars Additional smoking assessment comments: SMOKED CIGARS. ONE A DAY FOR 10 YRS QUIT 11/2023. DENIES ANY FORM OF TOBACCO Alcohol intake: current Drinks per week: 3 Alcohol use details: BEER Substance use: current Last use: 11/11/24 PAIN CONTROL Do You Feel Safe in your Home?: Yes Lack of Transportation: No Lack of Food: Never True Current Housing: I Have Housing Concerned About Future Housing: No Difficulty Paying Gas/Electric Bills: No Difficulty Paying for Meds: No Currently Unemployed: No Education: High School Diploma/GED Difficulty w/ Childcare or Family Care: No Living arrangements: with family Gender identity (if verbalized by the patient): Male Spiritual care concerns: No Meds Home Medications and Allergies Home Medications ?Medication ?Instructions ?Recorded ?Confirmed ?Type semaglutide 14 mg tablet (Rybelsus) 14 mg PO DAILY #90 tabs 02/06/24 11/22/24 Rx amlodipine 5 mg tablet 5 mg PO DAILY #90 tabs 05/28/24 11/22/24 Rx atorvastatin 10 mg tablet 10 mg PO DAILY #90 tabs 05/28/24 11/22/24 Rx losartan 100 mg tablet 100 mg PO DAILY #90 tabs 05/28/24 11/22/24 Rx hydrochlorothiazide 25 mg tablet 25 mg PO DAILY #90 tabs 05/31/24 11/22/24 Rx potassium chloride 10 mEq 10 meq PO DAILY #90 caps 07/13/24 11/22/24 Rx capsule,extended release ibuprofen 200 mg tablet (Advil) 800 mg PO Q6H PRN pain 11/18/24 11/22/24 History multivitamin (Daily Multi-Vitamin 1 tablet PO DAILY 11/18/24 11/22/24 History tablet) Allergies Allergy/AdvReac Type Severity Reaction Status Date / Time nebivolol Allergy Mild Itching Verified 11/18/24 10:10 eyes Exam Narrative: On exam patient has pain with any manipulation of his left hip. Internal rotation is 0 external rotation about 20 he has a positive Stinchfield test and tenderness palpation and manipulation. He walks with an antalgic gait. Neurologically appears to be grossly intact. Eyes: General: appearance normal, both eyes and all related structures Neck: Neck: supple Resp: Effort & Inspection: normal respiratory effort Cardio: Rate: regular rate Rhythm: regular rhythm Assessment and Plan Assessment and plan (1) Osteoarthritis of left hip: Qualifiers: Osteoarthritis type: primary Qualified Code(s): M16.12 - Unilateral primary osteoarthritis, left hip Code(s): M16.12 - Unilateral primary osteoarthritis, left hip Status: Acute Assessment and Plan: Patient has an arthritic left hip. He would like to consider hip replacement surgery. He has had a hip replacement on the right hip and done well. I discussed treatment options with him risks benefits limitations and alternatives in detail. He understands and agrees. Will pursue total hip arthroplasty on the left per his request.
[2024-12-01] VITALS (19 sets, daily range): BP systolic 110–159; BP diastolic 79–93; PULSE 74–100; RESP 10–20; TEMP 36.1–37.2; O2SAT 93–100; BMI 25.9
--- NOTE | ~2024-12-01 | XR_ITS ---
EXAMINATION: XR surgery orthopedic DATE: 12/01/2024 09:26 INDICATION: Intraoperative evaluation during left total hip arthroplasty TECHNIQUE: 2 frontal views of the left hip was obtained. COMPARISON: 10/21/2024 FINDINGS: Intraoperative image during a left total hip arthroplasty demonstrate placement of an acetabular comp onent affixed with at least a single screw and which appears in near anatomic alignment on the single image provided. A femoral broach is in place with the proximal tip centered over the acetabular com ponent. Subsequent image demonstrates replacement of the broach with a noncemented femoral component. The left total hip arthroplasty with a prior right total hip arthroplasty are both in near-anatomic alignment. Portions of the pelvis are obscured by a bolster. No fractures in the visualized bones. Truong rgical clips and expected soft tissue gas at the operative bed. A partially visualized hemostat proje cts over the upper pelvis, remote from the operative bed and likely external to the patient. IMPRESSION: 1. Expected appearance during left total hip arthroplasty. Reviewed, dictated and finalized at [facility]
--- OUTSIDE RECORDS SUMMARY | 2024-12-01 00:10 | XMS_ITS | Clinical Summary ---
Author Organization [facility] Address [address] [place] [address] Phone Care Team Providers Care Rate Quoting Operator Name Role Phone Loki Singh DO Primary Care Provider [phone] Allergies Active Allergy Reactions Criticality Noted Date [...] (02/14/2021): Added automatically from request for surgery [id number] Disorder of ankle joint 11/28/2020 Overview (02/14/2021): Added automatically from request for surgery [id number] Inflamed seborrheic keratosis 04/25/2016 Neoplasm of uncertain [...] Risk (1 of 4 - PCV) 1963 Influenza Vaccine (#1) 2024 07/26/2020 Care Teams Rate Quoting Operator Relationship Specialty Start Date End Date Loki Singh DO [address] [place] [address] PCP - General Internal Medicine 10/15/19
--- OUTSIDE RECORDS SUMMARY | 2024-12-01 00:10 | XMS_ITS | Referral Summary ---
Author Organization [facility] Orthopedic Outpa [facility] Address [address] [place] [address] Care Team Providers Care Reservations Sales Agent Name Role Phone Loki Singh DO Primary Care Provider [phone] Allergies Active Allergy Reactions Criticality Noted Date [...] (01/14/2022): Added automatically from request for surgery [id number] Added automatically from request for surgery [id number] Ankle pain 11/28/2020 Overview (01/14/2022): Added automatically from request for surgery [id number] Added automatically from request for surgery [id number] Viral wart 04/25/2016 Other melanin hyperpigmentation 04/25/2016 Nevus, non-neoplastic 04/25/2016 Neoplasm of uncertain behavior of skin 6 Inflamed seborrheic keratosis 04/25/2016 Immunizations Immunization Administration Dates Next Due Influenza, Unspecified 07/26/2020 [...] on file 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 Gender Identity Not on file Sexual Orientation [...] on file Medical Devices Implanted Type Area Dockmaster Device Identifier Shelf Expiration Date Model / Serial / Lot [id number] Inbone Knee Right 5 Standard Tray Tibial - S.0 - [id number] Implanted:Qty: 1 on 12/26/2020 by Kurt Veliz MD at [facility] [employer] 12/18/[id number] / .0 / [id number] [employer] [id number] Inbone 18mm Base Ankle Stem Tibial Plasma - S.0 - [id number] Implanted:Qty: 1 on 12/26/2020 by Kurt Veliz MD at [facility] Medicine [employer] 12/03/[id number] / .0 / [id number] [employer] [id number] Inbone 16mm Mid Ankle Stem Tibial Plasma - S.0 - [id number] Implanted:Qty: 1 on 12/26/2020 by Kurt Veliz MD at [facility] [employer] 07/23/[id number] / .0 / [id number] [employer] [id number] Inbone 16mm Mid Ankle Stem Tibial Plasma - S.0 - [id number] Implanted:Qty: 1 on 12/26/2020 by Kurt Veliz MD at [facility] [employer] 07/24/[id number] / .0 / [id number] [employer] [id number] Inbone 16mm Top Ankle Stem Tibial Plasma - S.0 - [id number] Implanted:Qty: 1 on 12/26/2020 by Kurt Veliz MD at [facility] Medicine [employer] 10/23/[id number] / .0 / [id number] [employer] [id number] Ankle 1 Large 10mm Stem Talar - S.0 - [id number] Implanted:Qty: 1 on 12/26/2020 by Kurt Veliz MD at [facility] [employer] [id number] 10/08/[id number] / .0 / [id number] [employer] [id number] Inbone Sulcus Ankle 4 Dome Component Talar - S.0 - [id number] Implanted:Qty: 1 on 12/26/2020 by Kurt Veliz MD at [facility] [employer] [id number] 10/26/[id number] / .0 / [id number] [employer] [id number] Inbone 12mm Ankle 4+ Implant Fixation Everlast - S.0 - [id number] Implanted:Qty: 1 on 12/26/2020 by Kurt Veliz MD at [facility] [employer] [id number] 01/01/202838389990 / .0 / [id number] Procedures Procedure Name Priority Date/Time Associated Diagnosis Comments HEMOGLOBIN A1C Routine 12/19/2020 11:53 AM CDT Preoperative testing from Last 3 Months or Most Recently Relevant to Health Maintenance Results * (ABNORMAL) Hemoglobin A1c (12/19/2020 11:53 AM CDT) Hgb A1C 6.7(H) 4.0 - 5.6 % ÁLVARO [facility] Estimated Average Glucose 146 mg/dL [facility] Comment: The ADA recommends reporting an estimated Average Glucose (eAG) with all Hemoglobin A1c results using the equation derived from a study of 507 normal and diabetic adults. Minority populations were underrepresented and children were not included. (Diabetes Care 31:3737-6873, 2008). The eAG is not equivalent to a fasting glucose. Blood specimen (specimen) 12/19/2020 11:53 AM CDT 12/19/2020 1:45 PM CDT Gladys Melgoza NP LAB BLOOD ORDERABLES Final Re sult [facility] Department [place] [address] from Last 3 Months or Most Recently Relevant to Health Maintenance Insurance [facility] MEDICARE AET MEDICARE Advance Directives For more information, please contact: [phone] * Full Code (Latest Code Status on File) Date Activated Date Inactivated Comments 12/26/2020 4:38 PM 12/27/2020 7:53 PM Care Teams Reservations Sales Agent Relationship Specialty Start Date End Date Loki Singh DO PCP - General Internal Medicine 08/25/20
--- OUTSIDE RECORDS SUMMARY | 2024-12-01 00:10 | XMS_ITS | CONTINUITY OF CARE DOCUMENT ---
Author Name akua fatima Address Unknown Organization [facility] Address [address] [place] [address] Phone [phone] Care Team Providers Care Biomaterials Engineer Name Role Phone Tootie Kerns MD Unavailable [phone] LESLIE WU DO Unavailable [phone] LESLIE WU DO Unavailable [phone] INSURANCE PROVIDERS Payer name Policy type / Coverage type [place] red [employer] party ID [facility] [id number]
--- OUTSIDE RECORDS SUMMARY | 2024-12-01 00:10 | XMS_ITS | Clinical Summary ---
Author Organization [facility] Orthopedic [facility] Address [address] [place] [address] Care Team Providers Care Construction Sales Manager Name Role Phone Loki Singh DO Primary Care Provider [phone] Allergies Active Allergy Reactions Criticality Noted Date [...] (01/14/2022): Added automatically from request for surgery [id number] Added automatically from request for surgery [id number] Ankle pain 11/28/2020 Overview (01/14/2022): Added automatically from request for surgery [id number] Added automatically from request for surgery [id number] Viral wart 04/25/2016 Other melanin hyperpigmentation 04/25/2016 [...] on file 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 Gender Identity Not on file Sexual Orientation [...] Colon Cancer Screening-Colonoscopy 1957 Depression Screening 1957 Hepatitis C Screening 1957 Prostate Cancer Screening-PSA 1957 eGFR 1957 Dilated Eye Exam 1957 Foot Exam 1957 Lipid Panel 1957 DTaP/Tdap/Td Vaccine (1 - Tdap) 1968 Hepatitis B Screening 1975 Pneumococcal vaccine 65+ (1 of 2 - PCV) 1976 Zoster Vaccine (1 of 2) 2007 Hemoglobin A1C 06/21/2021 12/19/2020 Fall Risk Assessment 12/27/2021 12/27/2020 Abdominal Aortic Aneurysm (AAA) Screen 2022 Well Visit 65+ 2022 Influenza Vaccine (#1) 2024 07/26/2020, 2019 Medical Devices Implanted Type Area Emergency Medicine Nurse Practitioner Device Identifier Shelf Expiration Date Model / Serial / Lot Red [employer]iental [id number] Inbone Knee Right 5 Standard Tray Tibial - S.0 - [id number] Implanted:Qty: 1 on 12/26/2020 by Kurt Veliz MD at [facility] [employer] 12/18/[id number] / .0 / [id number] [employer] [id number] Inbone 18mm Base Ankle Stem Tibial Plasma - S.0 - [id number] Implanted:Qty: 1 on 12/26/2020 by Kurt Veliz MD at [facility] [employer] 12/03/[id number] / .0 / [id number] [employer] Inbone 16mm Mid Ankle Stem Tibial Plasma - S.0 - [id number] Implanted:Qty: 1 on 12/26/2020 by Kurt Veliz MD at [facility] [employer] 07/23/[id number] / .0 / [id number] [employer] Inbone 16mm Mid Ankle Stem Tibial Plasma - S.0 - [id number] Implanted:Qty: 1 on 12/26/2020 by Kurt Veliz MD at [facility] [employer] 07/24/[id number] / .0 / [id number] [employer] Inbone 16mm Top Ankle Stem Tibial Plasma - S.0 - [id number] Implanted:Qty: 1 on 12/26/2020 by Kurt Veliz MD at [facility] [employer] 10/23/[id number] / .0 / [id number] [employer] [id number] Ankle 1 Large 10mm Stem Talar - S.0 - [id number] Implanted:Qty: 1 on 12/26/2020 by Kurt Veliz MD at [facility] [employer] [id number] 10/08/[id number] / .0 / [id number] [employer] [id number] Inbone Sulcus Ankle 4 Dome Component Talar - S.0 - [id number] Implanted:Qty: 1 on 12/26/2020 by Kurt Veliz MD at [facility] [employer] [id number] 10/26/[id number] / .0 / [id number] [employer] [id number] Inbone 12mm Ankle 4+ Implant Fixation Everlast - S.0 - [id number] Implanted:Qty: 1 on 12/26/2020 by Kurt Veliz MD at [facility] [employer] [facility] [id number] 01/01/2028 [id number] / .0 / [id number] Procedures Procedure Name Priority Date/Time Associated Diagnosis Comments HEMOGLOBIN A1C Routine 12/19/2020 11:53 AM CDT Preoperative testing from Last 3 Months or Most Recently Relevant to Health Maintenance Results * (ABNORMAL) Hemoglobin A1c (12/19/2020 11:53 AM CDT) Hgb A1C 6.7(H) 4.0 - 5.6 % [facility] Estimated Average Glucose 146 mg/dL [facility] Comment: The ADA recommends reporting an estimated Average Glucose (eAG) with all Hemoglobin A1c results using the equation derived from a study of 507 normal and diabetic adults. Minority populations were underrepresented and children were not included. (Diabetes Care 31:8409-3708, 2008). The eAG is not equivalent to a fasting glucose. Blood specimen (specimen) 12/19/2020 11:53 AM CDT 12/19/2020 1:45 PM CDT us Gladys Melgoza NP LAB BLOOD ORDERABLES Final Re sult [facility] Department [place] [address] from Last 3 Months or Most Recently Relevant to Health Maintenance [place] [address] AETNA MEDICARE Member Subscriber Plan / Payer (Ef fective 2020-Present) Name:Misha Sanabria Member ID:[id number] Relation to Subscriber:Self Name:Misha Sanabria Subscriber ID:[id number] Payer ID:1 (NAIC) [facility] Address: [facility] [id number] [place] [phone] [place] [address] AETNA MEDICARE Member Subscriber Plan / Payer ( fective 2020-Present) Name:Misha Sanabria Member ID:[id number] Relation to Subscriber:Self Name:Misha Sanabria Subscriber ID:[id number] Payer ID:1 (NAIC) Type:[employer] MEDICARE Address: [facility] [id number] [place] [phone] Advance Directives For more information, please contact: [phone] * Full Code (Latest Code Status on File) Date Activated Date Inactivated Comments 12/26/2020 4:38 PM 12/27/2020 7:53 PM Care Teams Construction Sales Manager Relationship Specialty Start Date End Date Loki Singh DO PCP - General Internal Medicine 08/25/20
[2024-12-01] MEDS: LACTATED RINGERS 1,000 ML 30 ML IV CONT ×2 (06:40→09:52)
[2024-12-01] MEDS: ACETAMINOPHEN 500 MG TABLET 1000 MG PO (06:45)
[2024-12-01] MEDS: VANCOMYCIN 1,500 MG/NS 500 ML BAG 250 MG IVPB (06:50)
--- NOTE | 2024-12-01 06:51 | WPDHPUPDATE1 ---
History and Physical Update Update Date/Time: 12/01/24 06:51 History and Physical has been reviewed, including an updated exam of the patient. There are NO changes in the patient's condition. Risks, benefits, and alternatives have been discussed and questions answered. Patient agrees to proceed with procedure.
[2024-12-01 06:52] LABS: Glucose Point of Care 97 mg/dl (65-105)
[2024-12-01] MEDS: TRANEXAMIC ACID 1,000MG/ISO100 1,000 MG/100 ML BAG 200 MG IVPB (06:52)
--- NOTE | 2024-12-01 07:23 | WPDANESEPPF ---
Anes - Initial Pre Proc Eval Procedure: Operation Date: 12/01/24 07:30 Proposed Procedures p Left Total Hip Arthroplasty - Wily Palacios MD Date/Time: 12/01/24 07:23 Surgeon: Wily Palacios MD Pre Op Diagnosis: oa left hip Patient Data Age: 69 Gender: M Height: 1.85 m Weight: 89.2 kg Last Vital Signs Temp 98.4 F 12/01/24 06:15 Pulse 80 12/01/24 06:15 Resp 16 12/01/24 06:15 BP 132/89 12/01/24 06:15 Pulse Ox 100 12/01/24 06:15 O2 Del Method Room Air 12/01/24 06:15 Allergies Allergy/AdvReac Type Severity Reaction Status Date / Time nebivolol Allergy Mild Itching Verified 12/01/24 06:57 eyes Home Medications ?Medication ?Instructions ?Recorded ?Confirmed ?Type semaglutide 14 mg tablet (Rybelsus) 14 mg PO DAILY #90 tabs 02/06/24 12/01/24 Rx amlodipine 5 mg tablet 5 mg PO DAILY #90 tabs 05/28/24 12/01/24 Rx atorvastatin 10 mg tablet 10 mg PO DAILY #90 tabs 05/28/24 12/01/24 Rx hydrochlorothiazide 25 mg tablet 25 mg PO DAILY #90 tabs 05/31/24 12/01/24 Rx potassium chloride 10 mEq 10 meq PO DAILY #90 caps 07/13/24 12/01/24 Rx capsule,extended release ibuprofen 200 mg tablet (Advil) 800 mg PO Q6H PRN pain 11/18/24 12/01/24 History multivitamin (Daily Multi-Vitamin 1 tablet PO DAILY 11/18/24 12/01/24 History tablet) losartan 100 mg tablet See Rx Instructions .Route 11/29/24 12/01/24 Rx .COMPLEX #90 tabs Laboratory Tests 12/01/24 06:42 POC Capillary Glucose 97 mg/dl (65-105) Patient hx anesthesia problems: none Family hx anesthesia problems: none Results Review: All pre-operative results and documents have been reviewed as part of the pre-operative evaluation. [facility] Past Medical History Medical History DM w/o complication type II Diabetes mellitus with hyperglycemia Essential hypertension Hyperlipidemia due to dietary fat intake Hypertension Polycystic kidney disease Diabetes mellitus Surgical History Surgical History Status post right ankle joint replacement History of ankle surgery (~12/26/20) Total knee replacement status Family History Family History Mother Patient's mother is in good health Social History Social History Smoking status: Never smoker Tobacco type: cigars Additional smoking assessment comments: SMOKED CIGARS. ONE A DAY FOR 10 YRS QUIT 11/2023. DENIES ANY FORM OF TOBACCO Alcohol intake: current Drinks per week: 3 Alcohol use details: BEER Substance use: current Last use: 11/11/24 PAIN CONTROL Do You Feel Safe in your Home?: Yes Lack of Transportation: No Lack of Food: Never True Current Housing: I Have Housing Concerned About Future Housing: No Difficulty Paying Gas/Electric Bills: No Difficulty Paying for Meds: No Currently Unemployed: No Education: High School Diploma/GED Difficulty w/ Childcare or Family Care: No Living arrangements: with family Gender identity (if verbalized by the patient): Male Spiritual care concerns: No Anes - Eval Final PreProcedure Day of Procedure 12/01/24 07:23 Patient weight: overweight Lungs: normal air movement Airway: Mallampati scale class II Neurological: alert and oriented Last oral intake: >/= 8 hours ASA classification: III Emergent: no Anesthetic plan: proceed Anesthesia type and monitoring: general ETT and standard monitoring Results Review: All pre-operative results and documents have been reviewed as part of the pre-operative evaluation. HTN, hyperlipidemia, DM fsbs 97. Informed Consent: The patient's anesthetic plan and its attendant risks and benefits were discussed with the patient/family/POA. Questions were solicited and answers provided to the satisfaction of the patient/family/POA.
[2024-12-01] MEDS: ceFAZolin 2 GM/D5W 50 ML 2 GM/50 ML BAG IVPB ×3 (07:27→23:45)
[2024-12-01] MEDS: BUPIVACAINE/EPINEPHRINE 0.5% 50 ML VIAL 20 ML INFILTRATE (08:07)
--- NOTE | 2024-12-01 09:24 | P.OP_ITS ---
Procedure Note - Detailed Date of Procedure 12/01/24 Pre-op Diagnosis Osteoarthritis LEFT hip Post-op Diagnosis Same Procedure Performed LEFT Total Hip arthroplasty Surgeon Wily Palacios MD Animal Trainer Supervisor Nasrin Anesthesia General Indications Pain and Arthritis Description of Procedure Patient was brought to the operating room #7, and an anesthetic was administered. The patient was placed with the operative Hip up and sterilely pr epped and draped in the usual manner. A longitudinal incision was performed. Dissection was carried down to the fascia. A Hardinge type approach was used and the femoral head was dislocated anteriorly. The Femoral head was removed a finger breath above the lesser trochanter. The acetabulum was serially reamed to accept a 58mm component. This was impacted into place and secured with 2 25mm screws. A high wall liner was placed. The femur was reamed and broached to accept a 14 component which was impacted into place. A Minus 3 head and neck were placed and the hip was put through full range of motion. The hip was noted to be stable. The wounds were then closed in a layered fashion using #5 ethibond, 2 vicryl, 2-0 vicryl and rula. Patient left the operating room in satisfactory condition. Implants Biomet taper lock stem Richy multi hole cup Estimated Blood Loss 600 Drains No Packing No Pathology None sent Complications No immediate complications Condition Stable Disposition PACU [facility] Billing Surgery - Charge Forward: Surgery Billing (52244 Total Hip)
[2024-12-01 10:05] LABS: Glucose Point of Care 128 mg/dl (65-105)
[2024-12-01] MEDS: fentaNYL CITRATE INJ (*CRX) 100 MCG/2 ML VIAL 25 MCG IV PUSH ×5 (10:41→11:08)
--- NOTE | 2024-12-01 11:20 | SUR.PHASEI ---
Patient meets PACU discharge criteria, unit bed unavailable at this time. Patient placed in extended recovery status.
[2024-12-01] MEDS: ONDANSETRON INJ 4 MG/2 ML VIAL IV PUSH (12:08)
[2024-12-01] MEDS: oxyCODONE HCL (*CRX) 5 MG TAB IR PO (12:14)
--- NOTE | 2024-12-01 14:31 | PM.IMCN ---
Assessment and Plan Assessment and plan (1) Osteoarthritis of left hip: Qualifiers: Osteoarthritis type: primary Qualified Code(s): M16.12 - Unilateral primary osteoarthritis, left hip Code(s): M16.12 - Unilateral primary osteoarthritis, left hip Status: Acute Assessment and Plan: - primary management through the orthopedic team - ambulate with assistance and up to chair - hip precautions in place - use IS - neurovasc checks - see order for intervals - SCDs - resume diet - analgesics and antiemetics p.r.n. - monitor labs in AM - CBC and BMP - bowel regimen: docusate/senna, polyethylene glycol - PT/OT (2) Diabetes mellitus: Qualifiers: Diabetes mellitus complication status: without complication Diabetes mellitus salvage determiner insulin use: without mcfp use Diabetes mellitus type: type 2 Qualified Code(s): E11.9 - Type 2 diabetes mellitus without complications Code(s): E11.9 - Type 2 diabetes mellitus without complications Status: Chronic Assessment and Plan: - pre-diabetic - hypoglycemia protocol - POC blood glucose ACHS - home medication: resume semaglutide p.o. tomorrow - correct regimen ordered - low dose TIDWM, based off BMI - A1C 5.9% on 11/18/2024 (3) Essential hypertension: Code(s): I10 - Essential (primary) hypertension Status: Chronic Assessment and Plan: - chronic, currently 136/82 - continue home medications: Amlodipine, HCTZ, losartan - monitor Plan Diet: Regular GI Prophylaxis: Not currently indicated DVT Prophylaxis: SCDs, Xarelto Lines: Peripheral Code Status: Full code HPI Date of Consult Consult date: 12/01/24 Requesting Physician: Wily Palacios MD Primary Care Provider: Loki Sinhg DO Consult Narrative Reason for consult: Medical Management Narrative: 69 y/o M presents here with [id number] osteoarthritis of the left hip with PMH of pre-diabetic, hypertension, hyperlipidemia, and polycystic kidney disease. The patient presents here for a total left hip arthroplasty. The patient has known [id number] arthritis of the left hip. He has previously underwent conservative treatment. He has previously underwent a total right hip arthroplasty with an unremarkable recovery and good results. Due to difficulty/interference with managing stairs, standing, hobbies etc. he elected to move forward with surgical management. Postoperatively he is reporting mild nausea and diaphoresis with standing, but quickly resolved. He reports that he lost 40 lbs and now is prediabetic v diabetic. He denies any further changes to his medical history or home medications. No further complaints. Preop VS: 98? F, HR 73, R 18, 146/91, and 97% on RA. Preop workup: No leukocytosis, no anemia, normal coags, no significant electrolyte derangements, A1c 5.9%, creatinine 0.88 and GFR >60, and MRSA negative. Review of Systems Review of Systems: All systems reviewed & are unremarkable except as noted in HPI and below PMFSH Past Medical History Medical History Polycystic kidney disease DM w/o complication type II Hyperlipidemia due to dietary fat intake Hypertension Surgical History Surgical History Status post right ankle joint replacement Status post bilateral knee replacements History of right hip replacement Family History Family History Mother Patient's mother is in good health Social History Social History Smoking status: Never smoker Additional smoking assessment comments: SMOKED CIGARS. ONE A DAY FOR 10 YRS QUIT 11/2023. DENIES ANY FORM OF TOBACCO Alcohol intake: current Drinks per week: 3 Alcohol use details: BEER Substance use: current Last use: 11/11/24 PAIN CONTROL Do You Feel Safe in your Home?: Yes Lack of Transportation: No Lack of Food: Never True Current Housing: I Have Housing Concerned About Future Housing: No Difficulty Paying Gas/Electric Bills: No Difficulty Paying for Meds: No Currently Unemployed: No Education: High School Diploma/GED Difficulty w/ Childcare or Family Care: No Living arrangements: with family Gender identity (if verbalized by the patient): Male Spiritual care concerns: No Meds Home Medications and Allergies Home Medications ?Medication ?Instructions ?Recorded ?Confirmed ?Type semaglutide 14 mg tablet (Rybelsus) 14 mg PO DAILY #90 tabs 02/06/24 12/01/24 Rx amlodipine 5 mg tablet 5 mg PO DAILY #90 tabs 05/28/24 12/01/24 Rx atorvastatin 10 mg tablet 10 mg PO DAILY #90 tabs 05/28/24 12/01/24 Rx hydrochlorothiazide 25 mg tablet 25 mg PO DAILY #90 tabs 05/31/24 12/01/24 Rx potassium chloride 10 mEq 10 meq PO DAILY #90 caps 07/13/24 12/01/24 Rx capsule,extended release ibuprofen 200 mg tablet (Advil) 800 mg PO Q6H PRN pain 11/18/24 12/01/24 History multivitamin (Daily Multi-Vitamin 1 tablet PO DAILY 11/18/24 12/01/24 History tablet) losartan 100 mg tablet See Rx Instructions .Route 11/29/24 12/01/24 Rx .COMPLEX #90 tabs Allergies Allergy/AdvReac Type Severity Reaction Status Date / Time nebivolol Allergy Mild Itching Verified 12/01/24 06:57 eyes Vital Signs Vital Signs - 24 hr 12/01/24 06:15 12/01/24 09:52 12/01/24 10:05 Temperature 98.4 F 97.0 F L Pulse Rate 80 86 82 Respiratory Rate 16 12 10 L Blood Pressure 132/89 118/79 135/91 H Pulse Oximetry 100 100 100 Oxygen Delivery Room Air Simple Face Mask Simple Face Mask Oxygen Flow Rate 8 8 12/01/24 10:20 12/01/24 10:35 12/01/24 10:50 Temperature Pulse Rate 79 83 74 Respiratory Rate 12 12 12 Blood Pressure 110/85 141/86 H 126/82 Pulse Oximetry 100 94 94 Oxygen Delivery Simple Face Mask Room Air Room Air Oxygen Flow Rate 8 12/01/24 11:05 12/01/24 11:20 12/01/24 11:50 Temperature Pulse Rate 81 81 81 Respiratory Rate 12 12 12 Blood Pressure 130/93 H 127/82 150/91 H Pulse Oximetry 100 100 100 Oxygen Delivery Nasal Cannula Nasal Cannula Nasal Cannula Oxygen Flow Rate 2 2 2 12/01/24 11:51 12/01/24 12:15 12/01/24 12:45 Temperature Pulse Rate 77 83 75 Respiratory Rate 14 16 16 Blood Pressure 143/92 H 144/85 H 143/88 H Pulse Oximetry 93 Oxygen Delivery Room Air Room Air Room Air Oxygen Flow Rate 12/01/24 13:15 12/01/24 13:40 12/01/24 13:55 Temperature 97.6 F 97.0 F L Pulse Rate 86 82 93 Respiratory Rate 16 18 20 Blood Pressure 140/90 144/85 H 159/88 H Pulse Oximetry 94 98 97 Oxygen Delivery Room Air Oxygen Flow Rate Exam Const: General: comfortable and no acute distress Other: , male, nontoxic appearance HENMT: Face/Nose/Sinus: Normal nares present Mouth: Yes moist mucous membranes Eyes: General: appearance normal, both eyes and all related structures Sclera: sclerae normal Pupils: Equal, round and reactive pupils present EOM: EOMs intact bilaterally Resp: Effort & Inspection: normal respiratory effort Auscultation: clear to auscultation bilaterally Cardio: Rate: regular rate Rhythm: regular rhythm Other: S1-S2 present without murmur, rub, ectopy GI: Other: Abdomen soft, nondistended, nontender. Normoactive bowel sounds in all quadrants. Skin: General skin exam: normal color and no rashes or lesions noted Other: Postoperative incision to left hip. Minimal underlying edema. Dressing CDI. Neuro: Speech: normal speech Motor exam (neuro): 5/5 motor strength present throughout Sensory Exam: normal sensation Other: A&O x4 Extrem: General: normal exam except as noted Psych: Mental Status: mental status grossly normal Affect: normal affect Other: Good insight and judgment, very pleasant Quality VTE Prophylaxis VTE prophylaxis: mechanical ordered and pharmacologic ordered Hospitalist [facility] Advance Care Plan I have confirmed that the patient's Advanced Care Plan is present, code status is documented, or surrogate decision maker is listed in patient medical record.: Yes Medication Reconciliation I have utilized all available resources to obtain, update and review the patients current medications (includes all prescriptions, OTC, herbals, cannabis, and nutritional supplements).: Yes
[2024-12-01] MEDS: SENNA/DOCUSATE SODIUM TABLET 2 TAB PO (15:59)
--- NOTE | 2024-12-01 16:04 | ADMGEN ---
This patient, Misha Sanabria, was admitted to [facility] Surg Room 331-02. Patient/family oriented to hospital policies and general routines including ID bracelet, bed and alarms, visiting hours, pain management, procedures, bathroom and other care routines, personal items, smoking policy, room service/diet, and visiting hours. Information on how to activate the Rapid Response Team has been discussed. Patient/Family are encouraged to report perceived risks to care and to ask questions if they do not understand what they are told or what they should do.
[2024-12-01 16:57] LABS: Glucose Point of Care 167 mg/dl (65-105)
[2024-12-01] MEDS: HYDROcodone/acetaminophen (*CRX) 5-325 MG TABLET 1 TAB PO ×2 (17:06→21:31)
[2024-12-01 20:59] LABS: Glucose Point of Care 173 mg/dl (65-105)
[2024-12-01] MEDS: RIVAROXABAN 10 MG TABLET PO (21:30)
[2024-12-02 03:10] VITALS: BP 141/85; PULSE 96; RESP 12; TEMP 36.9; O2SAT 96
[2024-12-02] MEDS: HYDROcodone/acetaminophen (*CRX) 5-325 MG TABLET 1 TAB PO (05:20)
[2024-12-02 06:51] LABS: Basophils Percent Auto 0.2 % (0.2-1.2); Eosinophils Absolute Auto 0.1 K/mm3 (0-0.3); Eosinophils Percent Auto 0.6 % (0-4.4); Hematocrit 38.4 % (42.0-52.0); Immature Granulocyte Absolute 0.07 K/mm3 (0.00-0.031); Immature Granulocyte Percent A 0.7 % (0-0.5); Lymphocytes Absolute Auto 0.82 K/mm3 (0.9-3.2); Mean Corpuscular HGB Conc 33.9 g/dl (32-36); Mean Corpuscular Hemoglobin 30.5 pg (26-34); Mean Corpuscular Volume 90.1 fl (80-100); Mean Platelet Volume 10.3 fl (7.4-10.4); Monocytes Absolute Auto 1.2 K/mm3 (0.1-0.6); Monocytes Percent Auto 11.9 % (2.6-8.5); Neutrophils Absolute Auto 8.1 K/mm3 (1.3-6.7); Neutrophils Percent Auto 78.6 % (45.5-73.1); Platelet Count Result 191 k/mm3 (150-375); Red Blood Count 4.26 M/mm3 (4.6-6.20); Red Cell Distribution Width 12.7 % (11.5-14.5); White Blood Count 10.3 K/mm3 (4.5-10.0)
--- NOTE | 2024-12-02 07:07 | PM.PNORT ---
Progress Note: A&P Assessment and Plan (1) History of total left hip replacement: Code(s): Z96.642 - Presence of left artificial hip joint Status: Acute Assessment and Plan: Patient is status post left total hip arthroplasty. Overall he is doing fine. Will ambulate him today and hopefully discharge this afternoon. Follow up 10 to 14 days for sutures out. Subjective Subjective Date/Time Seen: 12/02/24 07:07 Post Op day: 1 Principal diagnosis: Left Total Hip Replacement Review of Systems Review of Systems: All systems reviewed & are unremarkable except as noted in HPI and below Exam Narrative: Patient can wiggle his toes. He is up walking with a walker. Neurologically appears to be intact. Dressing is dry. Objective Data Vital Signs Vital Signs: Vital Signs - 24 hr 12/01/24 09:52 12/01/24 10:05 12/01/24 10:20 Temperature 97.0 F L Pulse Rate 86 82 79 Respiratory Rate 12 10 L 12 Blood Pressure 118/79 135/91 H 110/85 Pulse Oximetry 100 100 100 Oxygen Delivery Simple Face Mask Simple Face Mask Simple Face Mask Oxygen Flow Rate 8 8 8 12/01/24 10:35 12/01/24 10:50 12/01/24 11:05 Temperature Pulse Rate 83 74 81 Respiratory Rate 12 12 12 Blood Pressure 141/86 H 126/82 130/93 H Pulse Oximetry 94 94 100 Oxygen Delivery Room Air Room Air Nasal Cannula Oxygen Flow Rate 2 12/01/24 11:20 12/01/24 11:50 12/01/24 11:51 Temperature Pulse Rate 81 81 77 Respiratory Rate 12 12 14 Blood Pressure 127/82 150/91 H 143/92 H Pulse Oximetry 100 100 93 Oxygen Delivery Nasal Cannula Nasal Cannula Room Air Oxygen Flow Rate 2 2 12/01/24 12:15 12/01/24 12:45 12/01/24 13:15 Temperature Pulse Rate 83 75 86 Respiratory Rate 16 16 16 Blood Pressure 144/85 H 143/88 H 140/90 Pulse Oximetry 94 Oxygen Delivery Room Air Room Air Room Air Oxygen Flow Rate 12/01/24 13:40 12/01/24 13:55 12/01/24 14:20 Temperature 97.6 F 97.0 F L Pulse Rate 82 93 Respiratory Rate 18 20 Blood Pressure 144/85 H 159/88 H Pulse Oximetry 98 97 Oxygen Delivery Room Air Oxygen Flow Rate 12/01/24 14:25 12/01/24 15:25 12/01/24 19:10 Temperature 97.6 F 97.7 F 99.0 F Pulse Rate 86 86 100 Respiratory Rate 18 20 19 Blood Pressure 136/82 136/83 141/85 H Pulse Oximetry 96 99 96 Oxygen Delivery Oxygen Flow Rate 12/01/24 20:00 12/01/24 23:10 12/02/24 03:10 Temperature 97.8 F 98.5 F Pulse Rate 99 96 Respiratory Rate 13 12 Blood Pressure 127/82 141/85 H Pulse Oximetry 98 96 Oxygen Delivery Room Air Oxygen Flow Rate Intake/Output Intake/Output: Intake & Output 11/29/24 11/30/24 12/01/24 12/02/24 23:59 23:59 23:59 23:59 Intake Total 1740 50 Output Total 500 Balance 1240 50 Meds/Results Medications: Active Medications Generic Name Dose Route Start Last Admin Trade Name Freq PRN Reason Stop Dose Admin Hydrocodone Bitart/Acetaminophen 1 tab 12/01/24 11:52 12/02/24 05:20 Hydrocodone/Acetaminophen (*Crx) 5-325 Mg Tablet PO 1 tab Q4H PRN Administration Pain Rated 4-6 Hydrocodone Bitart/Acetaminophen 1 tab 12/01/24 11:52 Hydrocodone/Acetaminophen (*Crx) 7.5-325 Mg Tablet PO Q4H PRN Pain Rated 7-10 Amlodipine Besylate 5 mg 12/02/24 09:00 Amlodipine Besylate 5 Mg Tablet PO DAILY [facility] Atorvastatin Calcium 10 mg 12/02/24 09:00 Atorvastatin 10 Mg Tablet PO DAILY [facility] Celecoxib 200 mg 12/02/24 09:00 Celecoxib 200 Mg Capsule PO DAILY [facility] Dextrose 12.5 gm 12/01/24 14:40 Dextrose 50% 25 Gm/50 Ml Syringe IV PUSH PRN PRN Hypoglycemia Protocol Glucagon 1 mg 12/01/24 14:40 Glucagon For Inj 1 Mg Vial IM PRN PRN Hypoglycemia Protocol Glucose 15 gm 12/01/24 14:40 Glucose Oral Gel 15 Gm Of Glucse In 37.5 Gm Tube PO PRN PRN Hypoglycemia Protocol Hydrochlorothiazide 25 mg 12/02/24 09:00 Hydrochlorothiazide 25 Mg Tablet PO DAILY [facility] Hydromorphone HCl 1 mg 12/01/24 13:25 Hydromorphone Hcl Inj (*Crx) 1 Mg/Ml Syr IV PUSH Q2H PRN Breakthrough Pain Rated 7-10 or NPO Hydromorphone HCl 0.5 mg 12/01/24 13:25 Hydromorphone Hcl Inj (*Crx) 1 Mg/Ml Syr IV PUSH Q2H PRN Breakthrough Pain Rated 4-6 or NPO Cefazolin Sodium 2 gm in 50 mls @ 100 mls/hr 12/01/24 16:00 12/02/24 00:15 Ancef 2 Gm/D5w 50 Ml IVPB 12/02/24 08:29 Infused Q8H [facility] Infusion Ibuprofen 800 mg in 200 mls @ 400 mls/hr 12/01/24 13:25 Caldolor 800 Mg/200 Ml IVPB Q6H PRN Breakthrough Pain Rated 1-3 or NPO Dextrose 1,000 mls @ 100 mls/hr 12/01/24 14:40 Dextrose 5% 1,000 Ml IVPB PRN PRN Hypoglycemia Protocol Insulin Aspart 2 - 5 units 12/01/24 17:00 12/01/24 16:01 Insulin Aspart (*Bkc) 100 Units/Ml SUB-Q Not Given TIDWM [facility] Protocol Losartan Potassium 100 mg 12/02/24 09:00 Losartan Potassium 100 Mg Tablet PO DAILY [facility] Naloxone HCl 0.1 mg 12/01/24 13:25 Naloxone Hcl 0.4 Mg/Ml Vial IV PUSH Q2M PRN Opiate Reversal Ondansetron HCl 4 mg 12/01/24 13:25 Ondansetron Inj 4 Mg/2 Ml Vial IV PUSH Q4H PRN Nausea And Vomiting Polyethylene Glycol 17 gm 12/02/24 09:00 Polyethylene Glycol 3350 17 Gm Powd.Pack PO QAM [facility] Rivaroxaban 10 mg 12/01/24 22:00 12/01/24 21:30 Rivaroxaban 10 Mg Tablet PO 01/04/25 17:01 10 mg DAILY@1700 [facility] Administration Senna/Docusate Sodium 2 tab 12/01/24 17:00 12/01/24 15:59 Senna/Docusate Sodium Tablet PO 2 tab BID [facility] Administration Tramadol HCl 50 mg 12/01/24 11:52 Tramadol Hcl (*Crx) 50 Mg Tablet PO Q4H PRN Pain Rated 1-3 Radiology Results: ITS Impressions Intraoperative X-Ray 12/01/24 09:51 IMPRESSION: 1. Expected appearance during left total hip arthroplasty. Labs Labs: Laboratory Results - last 24 hr 12/01/24 12/01/24 12/01/24 09:55 16:29 20:19 WBC RBC Hgb Hct MCV MCH MCHC RDW Plt Count MPV Immature Gran % (Auto) Neut % (Auto) Lymph % (Auto) [place] % (Auto) Eos % (Auto) Baso % (Auto) Lymph # (Auto) [place] # (Auto) Eos # (Auto) Baso # (Auto) Abs Immat Gran (auto) Absolute Neuts (auto) Absolute Nucleated RBC Nucleated RBC % POC Capillary Glucose 128 H 167 H 173 H 12/02/24 06:28 WBC 10.3 H RBC 4.26 L Hgb 13.0 L Hct 38.4 L MCV 90.1 MCH 30.5 MCHC 33.9 RDW 12.7 Plt Count 191 MPV 10.3 Immature Gran % (Auto) 0.7 H Neut % (Auto) 78.6 H Lymph % (Auto) 8.0 L [place] % (Auto) 11.9 H Eos % (Auto) 0.6 Baso % (Auto) 0.2 Lymph # (Auto) 0.82 L [place] # (Auto) 1.2 H Eos # (Auto) 0.1 Baso # (Auto) 0.0 Abs Immat Gran (auto) 0.07 H Absolute Neuts (auto) 8.1 H Absolute Nucleated RBC 0.000 Nucleated RBC % 0.0 POC Capillary Glucose
[2024-12-02 07:09] LABS: Anion Gap 5 mmol/L (4-12); Blood Urea Nitrogen 14 mg/dL (9-20); Calcium 8.7 mg/dL (8.4-10.2); Carbon Dioxide 32 mmol/L (22-30); Chloride 100 mmol/L (98-107); Estimated CRCL calculation 83 ml/min; Estimated Glomerular Filt Rate > 60; Glucose 119 mg/dL (65-110); Potassium 3.5 mmol/L (3.4-5.0); Sodium 137 mmol/L (137-145)
--- NOTE | 2024-12-02 07:09 | PM.DS ---
DS: Admitting Diagnosis Discharge Date 12/02/24 Admitting Diagnosis Osteoarthritis left hip DS: Discharge Diagnosis Discharge Diagnosis (1) History of total left hip replacement: Code(s): Z96.642 - Presence of left artificial hip joint Status: Acute Assessment and Plan: S/P Left AUSTEN for osteoarthritis. Doing well. Dismiss today. F/U 10-14 days for sutures. DS: Summary Hospital Course Hospital Course: Patient underwent total hip arthroplasty for osteoarthritis done well postop really dismissal is today. Follow up 10 to 14 days. Status at Discharge Functional status at discharge: uses cane/walker Time Spent with Patient Time attestation: Total time spent providing and/or coordinating discharge services: DS: Data Data Completed and Pending Labs on day of discharge: Labs from last 24 hours 12/02/24 12/01/24 12/01/24 06:28 20:19 16:29 WBC 10.3 H RBC 4.26 L Hgb 13.0 L Hct 38.4 L MCV 90.1 MCH 30.5 MCHC 33.9 RDW 12.7 Plt Count 191 MPV 10.3 Immature Gran % (Auto) 0.7 H Neut % (Auto) 78.6 H Lymph % (Auto) 8.0 L [place] % (Auto) 11.9 H Eos % (Auto) 0.6 Baso % (Auto) 0.2 Lymph # (Auto) 0.82 L [place] # (Auto) 1.2 H Eos # (Auto) 0.1 Baso # (Auto) 0.0 Abs Immat Gran (auto) 0.07 H Absolute Neuts (auto) 8.1 H Absolute Nucleated RBC 0.000 Nucleated RBC % 0.0 Sodium Pending Potassium Pending Chloride Pending Carbon Dioxide Pending Anion Gap Pending BUN Pending Creatinine Pending Estim Creat Clear Calc Pending Estimated GFR Pending Glucose Pending POC Capillary Glucose 173 H 167 H Calcium Pending 12/01/24 09:55 WBC RBC Hgb Hct MCV MCH MCHC RDW Plt Count MPV Immature Gran % (Auto) Neut % (Auto) Lymph % (Auto) [place] % (Auto) Eos % (Auto) Baso % (Auto) Lymph # (Auto) [place] # (Auto) Eos # (Auto) Baso # (Auto) Abs Immat Gran (auto) Absolute Neuts (auto) Absolute Nucleated RBC Nucleated RBC % Sodium Potassium Chloride Carbon Dioxide Anion Gap BUN Creatinine Estim Creat Clear Calc Estimated GFR Glucose POC Capillary Glucose 128 H Calcium Discharge Plan Discharge Patient Disposition: Home, Self-Care Discharge Instructions: Dr. Wily Palacios M.D [address] [place] [id number] POST-OPERATIVE DISCHARGE INSTRUCTIONS TOTAL HIP ARTHROPLASTY 1. Move toes/feet up and down every hour while awake. 2. Be up walking every hour while awake. 3. Use walker warehouse assembly worker if instructed to use walker warehouse assembly worker.When you are allowed to use the cane, use the cane in the opposite hand. 4. When resting, do not rest in the chair. Rather, lie on your back, with back flat, and the leg elevated above heart to minimize swelling. You may put a pillow under your head. Do not rest in a chair. Resting in the chair results in swelling in the leg. Significant swelling could indicate a blood clot and if this occurs, call the office (or go to the ER) to have a venous ultrasound performed. Its ok to sit in the chair to eat and use the toilet and to receive a guest but sitting in a chair will cause your leg to swell. so try to minimize sitting in a chair. 5. Wound Care: Apply a folded 4x4 sponge to incision and hold with crossing strips of 1 inch Transpore tape. 6. Follow weight bearing status as instructed: 7. May shower. Remove dressing before shower and reapply dressing after shower. Patient Language: Afghan Stand Alone Forms: General Discharge Instructions Follow-up/Referrals: Wily Palacios MD [Physician] - Discharge Medications: New doxycycline hyclate 100 mg tablet 100 mg PO DAILY Qty: 10 0RF hydrocodone-acetaminophen 7.5-325 mg tablet 1 tablet PO Q4H PRN (Reason: pain) Qty: 40 0RF Xarelto 10 mg tablet 10 mg PO DAILY Qty: 20 0RF Rx Instructions: for 20 days Continued potassium chloride 10 mEq capsule, extended release 10 meq PO DAILY Qty: 90 1RF multivitamin [Daily Multi-Vitamin] Tablet 1 tablet PO DAILY ibuprofen [Advil] 200 mg tablet 800 mg PO Q6H PRN (Reason: pain) Rybelsus 14 mg tablet 14 mg PO DAILY Qty: 90 1RF amlodipine 5 mg tablet 5 mg PO DAILY Qty: 90 1RF atorvastatin 10 mg tablet 10 mg PO DAILY Qty: 90 1RF hydrochlorothiazide 25 mg tablet 25 mg PO DAILY Qty: 90 3RF losartan 100 mg tablet See Rx Instructions .ROUTE .COMPLEX Qty: 90 1RF Dose Instruction: TAKE ONE TABLET BY MOUTH EVERY DAY Rx Instructions: TAKE ONE TABLET BY MOUTH EVERY DAY
[2024-12-02 07:10] VITALS: BP 117/70; PULSE 95; RESP 18; TEMP 36.7; O2SAT 96
[2024-12-02 07:58] LABS: Glucose Point of Care 138 mg/dl (65-105)
--- NOTE | 2024-12-02 08:14 | PCPTNOTE ---
Attempted to see patient for PT, however patient was eating breakfast.
[2024-12-02] MEDS: ceFAZolin 2 GM/D5W 50 ML 2 GM/50 ML BAG IVPB (08:53)
[2024-12-02] MEDS: amLODIPine BESYLATE 5 MG TABLET PO (08:54)
[2024-12-02] MEDS: LOSARTAN POTASSIUM 100 MG TABLET PO (08:54)
[2024-12-02] MEDS: hydroCHLOROthiazide 25 MG TABLET PO (08:54)
[2024-12-02] MEDS: CELECOXIB 200 MG CAPSULE PO (08:54)
[2024-12-02] MEDS: polyethylene glycoL 3350 17 GM POWD.PACK PO (08:54)
[2024-12-02] MEDS: ATORVASTATIN 10 MG TABLET PO (08:54)
[2024-12-02] MEDS: SENNA/DOCUSATE SODIUM TABLET 2 TAB PO (08:54)
[2024-12-02] MEDS: HYDROcodone/acetaminophen (*CRX) 7.5-325 MG TABLET 1 TAB PO (09:01)
[2024-12-02 11:10] VITALS: BP 141/86; PULSE 89; RESP 18; TEMP 36.7; O2SAT 95
[2024-12-02 11:30] LABS: Glucose Point of Care 163 mg/dl (65-105)
--- NOTE | 2024-12-02 13:16 | PM.IMPN ---
Progress Note: A&P Assessment and Plan (1) Diabetes mellitus: Qualifiers: Diabetes mellitus type: type 2 Diabetes mellitus correction insulin use: without ocean transportation intermediary use Diabetes mellitus complication status: without complication Qualified Code(s): E11.9 - Type 2 diabetes mellitus without complications Code(s): E11.9 - Type 2 diabetes mellitus without complications Status: Chronic Assessment and Plan: - pre-diabetic - hypoglycemia protocol - POC blood glucose ACHS - home medication: resume semaglutide p.o. tomorrow - correct regimen ordered - low dose TIDWM, based off BMI - A1C 5.9% on 11/18/2024 Plan patient with severe left hip osteo arthritis had totoal left hip arthroplasty POD #1, patient is seen by his orthopedic surgeon and clinically patient is improving, doing well will discharge patient today. Subjective Date/time seen: 12/02/24 13:16 Interval history: patient with severe left hip osteo arthritis had totoal left hip arthroplasty POD #1, patient is seen by his orthopedic surgeon and clinically patient is improving, doing well will discharge patient today. Review of Systems Review of Systems: All systems reviewed & are unremarkable except as noted in HPI and below Exam Narrative: Patient is comfortable, NAD HEENT: eyes are clear and none icteric LUNGS:CTA HEART: RR S1S2 ABD: BS+, Soft and nontender Lower extremities: no edema SKIN: nonjaundiced Neuro: grossly intact. Objective Data Vital Signs Vital Signs: Vital Signs - 24 hr 12/01/24 13:40 12/01/24 13:55 12/01/24 14:20 Temperature 36.4 C 36.1 C L Pulse Rate 82 93 Respiratory Rate 18 20 Blood Pressure 144/85 H 159/88 H Pulse Oximetry 98 97 Oxygen Delivery Room Air 12/01/24 14:25 12/01/24 15:25 12/01/24 19:10 Temperature 36.4 C 36.5 C 37.2 C Pulse Rate 86 86 100 Respiratory Rate 18 20 19 Blood Pressure 136/82 136/83 141/85 H Pulse Oximetry 96 99 96 Oxygen Delivery 12/01/24 20:00 12/01/24 23:10 12/02/24 03:10 Temperature 36.6 C 36.9 C Pulse Rate 99 96 Respiratory Rate 13 12 Blood Pressure 127/82 141/85 H Pulse Oximetry 98 96 Oxygen Delivery Room Air 12/02/24 07:10 12/02/24 11:10 Temperature 36.7 C 36.7 C Pulse Rate 95 89 Respiratory Rate 18 18 Blood Pressure 117/70 141/86 H Pulse Oximetry 96 95 Oxygen Delivery Intake/Output Intake/Output: Intake & Output 11/29/24 11/30/24 12/01/24 12/02/24 23:59 23:59 23:59 23:59 Intake Total 1740 450 Output Total 500 Balance 1240 450 Meds/Results Radiology Results: ITS Impressions Intraoperative X-Ray 12/01/24 09:51 IMPRESSION: 1. Expected appearance during left total hip arthroplasty. Labs Labs: Laboratory Results - last 24 hr 12/01/24 12/01/24 12/02/24 16:29 20:19 06:28 WBC 10.3 H RBC 4.26 L Hgb 13.0 L Hct 38.4 L MCV 90.1 MCH 30.5 MCHC 33.9 RDW 12.7 Plt Count 191 MPV 10.3 Immature Gran % (Auto) 0.7 H Neut % (Auto) 78.6 H Lymph % (Auto) 8.0 L [place] % (Auto) 11.9 H Eos % (Auto) 0.6 Baso % (Auto) 0.2 Lymph # (Auto) 0.82 L [place] # (Auto) 1.2 H Eos # (Auto) 0.1 Baso # (Auto) 0.0 Abs Immat Gran (auto) 0.07 H Absolute Neuts (auto) 8.1 H Absolute Nucleated RBC 0.000 Nucleated RBC % 0.0 Sodium 137 Potassium 3.5 Chloride 100 Carbon Dioxide 32 H Anion Gap 5 BUN 14 Creatinine 0.85 Estim Creat Clear Calc 83 Estimated GFR > 60 Glucose 119 H POC Capillary Glucose 167 H 173 H Calcium 8.7 12/02/24 12/02/24 07:35 11:28 WBC RBC Hgb Hct MCV MCH MCHC RDW Plt Count MPV Immature Gran % (Auto) Neut % (Auto) Lymph % (Auto) [place] % (Auto) Eos % (Auto) Baso % (Auto) Lymph # (Auto) [place] # (Auto) Eos # (Auto) Baso # (Auto) Abs Immat Gran (auto) Absolute Neuts (auto) Absolute Nucleated RBC Nucleated RBC % Sodium Potassium Chloride Carbon Dioxide Anion Gap BUN Creatinine Estim Creat Clear Calc Estimated GFR Glucose POC Capillary Glucose 138 H 163 H Calcium Quality VTE Prophylaxis VTE prophylaxis: mechanical ordered and pharmacologic ordered
== END 2024-12-02 11:55 | disposition home or self-care (01) ==
LOC: ANHSURGERY 06:05 → ANH3MEDSUR 13:27
PROVIDERS: PCP Internal Medicine; Visit Provider Orthopaedic Surgery
PROC: (CPT 27130; principal; 2024-12-01 07:30)
DX: M16.12 Unilateral primary osteoarthritis, left hip (principal); E11.9 Type 2 diabetes mellitus without complications; I10 Essential (primary) hypertension; E78.5 Hyperlipidemia, unspecified; Q61.3 Polycystic kidney, unspecified; Z79.84 Long term (current) use of oral hypoglycemic drugs; Z87.891 Personal history of nicotine dependence
CPT/HCPCS: 27130; 36415; 80048; 82948; 85025; 97110; 97161; 97165; 97530; 97535; 99199; A9270; C1776; J0690; J1100; J1171; J2250; J2405; J2704; J3010; J3370; J7120

== ENCOUNTER 2025-01-18 10:54 | Outpatient (CLI) | payer MEDICARE, SELFPAY ==
--- OUTSIDE RECORDS SUMMARY | 2025-01-18 12:11 | XMS_ITS | CONTINUITY OF CARE DOCUMENT ---
Author Name akua fatima Address Unknown Organization [facility] Address [address] [place] [address] Phone [phone] Care Team Providers Care Welder Apprentice Combination Name Role Phone Tootie Kerns MD Unavailable LESLIE WU DO Unavailable LESLIE WU DO Unavailable [phone] INSURANCE PROVIDERS Payer name Policy type / Coverage type [place] red republic[employer] ID [facility] [id number]
--- OUTSIDE RECORDS SUMMARY | 2025-01-18 12:11 | XMS_ITS | Referral Summary ---
Author Organization [facility] Address [address] [place] [address] Care Team Providers Care Seismic Prospecting Supervisor Name Role Phone Loki Singh DO Primary Care Provider [phone] Allergies Active Allergy Reactions Criticality Noted Date [...] (01/14/2022): Added automatically from request for surgery [id number] Added automatically from request for surgery [id number] Ankle pain 11/28/2020 Overview (01/14/2022): Added automatically from request for surgery [id number] Added automatically from request for surgery [id number] Viral wart 04/25/2016 Other melanin hyperpigmentation 04/25/2016 [...] on file 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 [employer] 12/18/[id number] / .0 / [id number] [employer] [id number] Inbone 18mm Base Ankle Stem Tibial Plasma - S.0 - [id number] Implanted:Qty: 1 on 12/26/2020 by Kurt Veliz MD at [facility] Medicine [employer] 12/03/[id number] / .0 / [id number] [employer] [id number] Inbone 16mm Mid Ankle Stem Tibial Plasma - S.0 - [id number] Implanted:Qty: 1 on 12/26/2020 by Kurt Veliz MD at [facility] [employer] 07/23/[id number] / .0 / [id number] [employer] [id number] Inbone 16mm Mid Ankle Stem Tibial Plasma - S.0 - [id number] Implanted:Qty: 1 on 12/26/2020 by Kurt Veliz MD at [facility] [employer] 07/24/[id number] / .0 / [id number] [employer] [id number] Inbone 16mm Top Ankle Stem Tibial Plasma - S.0 - [id number] Implanted:Qty: 1 on 12/26/2020 by Kurt Veliz MD at [facility] Medicine [employer] 10/23/[id number] / .0 / [id number] Opicos [id number] Ankle 1 Large 10mm Stem Talar - S.0 - [id number] Implanted:Qty: 1 on 12/26/2020 by Kurt Veliz MD at [facility] [employer] [id number] 10/08/[id number] / .0 / [id number] [employer] [id number] Inbone Sulcus Ankle 4 Dome Component Talar - S.0 - [id number] Implanted:Qty: 1 on 12/26/2020 by Kurt Veliz MD at [facility] [employer] [id number] 10/26/2028657603269 / .0 / [id number] [employer] Folloze [id number] Inbone 12mm Ankle 4+ Implant Fixation Everlast - S.0 - [id number] Implanted:Qty: 1 on 12/26/2020 by Kurt Veliz MD at [facility] Opicos [id number] 01/01/202803455305 / .0 / [id number] Procedures Procedure Name Priority Date/Time Associated Diagnosis Comments HEMOGLOBIN A1C Routine 12/19/2020 11:53 AM CDT Preoperative testing from Last 3 Months or Most Recently Relevant to Health Maintenance Results * (ABNORMAL) Hemoglobin A1c (12/19/2020 11:53 AM CDT) Hgb A1C 6.7(H) 4.0 - 5.6 % ÁLVARO [facility] Estimated Average Glucose 146 mg/dL ÁLVARO [facility] Comment: The ADA recommends reporting an estimated Average Glucose (eAG) with all Hemoglobin A1c results using the equation derived from a study of 507 normal and diabetic adults. Minority populations were underrepresented and children were not included. (Diabetes Care 31:1845-9213, 2008). The eAG is not equivalent to a fasting glucose. Blood specimen (specimen) 12/19/2020 11:53 AM CDT 12/19/2020 1:45 PM CDT Gladys Melgoza NP LAB BLOOD ORDERABLES Final Re sult ÁLVARO [facility] [place] [address] from Last 3 Months or Most Recently Relevant to Health Maintenance [place] [address] [address] [place] [address] MEDICARE Advance Directives For more information, please contact: [phone] * Full Code (Latest Code Status on File) Date Activated Date Inactivated Comments 12/26/2020 4:38 PM 12/27/2020 7:53 PM Care Teams Seismic Prospecting Supervisor Relationship Specialty Start Date End Date Loki Singh DO PCP - General Internal Medicine 08/25/20
--- OUTSIDE RECORDS SUMMARY | 2025-01-18 12:11 | XMS_ITS | Clinical Summary ---
Author Organization [facility] Center Address [address] [place] [address] Care Team Providers Care Glass Ribbon Machine Operator Assistant Name Role Phone Loki Singh DO Primary Care Provider [phone] Allergies Active Allergy Reactions Criticality Noted Date [...] (01/14/2022): Added automatically from request for surgery [id number] Added automatically from request for surgery [id number] Ankle pain 11/28/2020 Overview (01/14/2022): Added automatically from request for surgery [id number] Added automatically from request for surgery [id number] Viral wart 04/25/2016 Other melanin hyperpigmentation 04/25/2016 [...] on file 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 Gender Identity Not on file Sexual Orientation [...] on file Medical Devices Implanted Type Area Academic Support Specialist Device Identifier Shelf Expiration Date Model / Serial / Lot Namshi [id number] Inbone Knee Right 5 Standard Tray Tibial - S.0 - [id number] Implanted:Qty: 1 on 12/26/2020 by Kurt Veliz MD at [facility] [employer] 12/18/[id number] / .0 / [id number] [employer] [id number] Inbone 18mm Base Ankle Stem Tibial Plasma - S.0 - [id number] Implanted:Qty: 1 on 12/26/2020 by Kurt Veliz MD at [facility] Medicine [employer] 12/03/[id number] / .0 / [id number] [employer] [id number] Inbone 16mm Mid Ankle Stem Tibial Plasma - S.0 - [id number] Implanted:Qty: 1 on 12/26/2020 by Kurt Veliz MD at [facility] Advanced Medicine [employer] 07/23/[id number] / .0 / [id number] [employer] [id number] Inbone 16mm Mid Ankle Stem Tibial Plasma - S.0 - [id number] Implanted:Qty: 1 on 12/26/2020 by Kurt Veliz MD at [facility] Advanced Medicine [employer] 07/24/[id number] / .0 / [id number] [employer] [id number] Inbone 16mm Top Ankle Stem Tibial Plasma - S.0 - [id number] Implanted:Qty: 1 on 12/26/2020 by Kurt Veliz MD at [facility] [employer] 10/23/[id number] / .0 / [id number] [employer] [id number] Ankle 1 Large 10mm Stem Talar - S.0 - [id number] Implanted:Qty: 1 on 12/26/2020 by Kurt Veliz MD at [facility] [employer] [id number] 10/08/20282002793493121 / .0 / [id number] [employer] [id number] Inbone Sulcus Ankle 4 Dome Component Talar - S.0 - [id number] Implanted:Qty: 1 on 12/26/2020 by Kurt Veliz MD at [facility] [employer] [id number] 10/26/2028246552695 / .0 / [id number] [employer] [id number] Inbone 12mm Ankle 4+ Implant Fixation Everlast - S.0 - [id number] Implanted:Qty: 1 on 12/26/2020 by Kurt Veliz MD at [facility] [employer] [id number] 01/01/202870910584 / .0 / [id number] Procedures Procedure Name Priority Date/Time Associated Diagnosis Comments HEMOGLOBIN A1C Routine 12/19/2020 11:53 AM CDT Preoperative testing from Last 3 Months or Most Recently Relevant to Health Maintenance Results * (ABNORMAL) Hemoglobin A1c (12/19/2020 11:53 AM CDT) Hgb A1C 6.7(H) 4.0 - 5.6 % ÁLVARO [facility] Estimated Average Glucose 146 mg/dL ÁLVARO [facility] Comment: The ADA recommends reporting an estimated Average Glucose (eAG) with all Hemoglobin A1c results using the equation derived from a study of 507 normal and diabetic adults. Minority populations were underrepresented and children were not included. (Diabetes Care 31:6374-2312, 2008). The eAG is not equivalent to a fasting glucose. Blood specimen (specimen) 12/19/2020 11:53 AM CDT 12/19/2020 1:45 PM CDT us Gladys Melgoza NP LAB BLOOD ORDERABLES Final Re sult ÁLVARO [facility] One [facility] [place] [address] from Last 3 Months or Most Recently Relevant to Health Maintenance Insurance [employer] MEDICARE [facility] MEDICARE [address] [place] [address] MEDICARE Advance Directives For more information, please contact: [phone] * Full Code (Latest Code Status on File) Date Activated Date Inactivated Comments 12/26/2020 4:38 PM 12/27/2020 7:53 PM Care Teams Glass Ribbon Machine Operator Assistant Relationship Specialty Start Date End Date Loki Singh DO PCP - General Internal Medicine 08/25/20
--- OUTSIDE RECORDS SUMMARY | 2025-01-18 12:11 | XMS_ITS | Clinical Summary ---
Author Organization [facility] Address [address] [place] [address] Phone Care Team Providers Care Factory Manager Name Role Phone Loki Singh DO Primary Care Provider [phone] Allergies Active Allergy Reactions Criticality Noted Date Comments Nebivolol Unknown,Itching Low 11/28/2019 Medications metFORMIN (GLUCOPHAGE) 1000 MG tablet 02/09/2016 Acti ve atorvastatin (LIPITOR) 10 MG tablet Take 10 mg by mouth 1 (one) time each day Active hydroCHLOROthiaz janet (HYDRODIURIL) 25 MG tablet Take 25 mg [...] (02/14/2021): Added automatically from request for surgery [id number] Disorder of ankle joint 11/28/2020 Overview (02/14/2021): Added automatically from request for surgery [id number] Inflamed seborrheic keratosis 04/25/2016 Neoplasm of uncertain behavior of skin 6 Non-neoplastic nevus 04/25/2016 Other melanin hyperpigmentation 04/25/2016 Other seborrheic keratosis 04/25/2016 Viral wart 04/25/2016 Autosomal dominant polycystic kidney disease Diabetes mellitus Hyperlipidemia Hypertension Osteoarthritis Acquired polycystic kidney disease Immunizations Immunization Administration Dates Next Due Influenza, Injectable, Quadrivalent [...] at Not on file Legal Sex Male 8:55 AM [facility] Gender Identity Not on file Sexual Orientation [...] Comments Pneumococcal PPSV23/PCV13 65 + Years / Low and Medium Risk (1 of 4 - PCV) 2007 Influenza Vaccine (Season Ended) 2025 07/26/20 20 Insurance [employer] Care Teams Factory Manager Relationship Specialty Start Date End Date Loki Singh DO [address] [place] [id number] PCP - General Internal Medicine 10/15/19
[2025-01-18 18:44] LABS: Albumin Level 3.9 g/dL (3.5-5.1); Anion Gap 8 mmol/L (4-12); Blood Urea Nitrogen 16 mg/dL (9-20); Calcium 8.8 mg/dL (8.4-10.2); Carbon Dioxide 30 mmol/L (22-30); Chloride 103 mmol/L (98-107); Estimated Glomerular Filt Rate > 60; Glucose 96 mg/dL (65-110); Phosphorus 3.4 mg/dL (2.5-4.5); Potassium 3.4 mmol/L (3.4-5.0); Sodium 141 mmol/L (137-145)
[2025-01-18 18:50] LABS: Cholesterol 62 mg/dL (0-200); HDL Direct 24 mg/dL; Triglycerides 65 mg/dL (<150)
[2025-01-18 18:53] LABS: Creatinine Urine 104.5 mg/dL
[2025-01-18 19:18] LABS: Prostate Specific Antigen 2.7 ng/mL (< OR = 4.0)
[2025-01-18 19:55] LABS: LDL Cholesterol Direct < 30 mg/dL
[2025-01-18 19:56] LABS: Total Protein Urine Random < 5 mg/dL; Ur Ttl Prot Creatinine Ratio < 0.05 mg/mg (0-0.20)
== END 2025-01-18 10:55 | disposition home or self-care (01) ==
LOC: ANHGOSHLAB 10:56
PROVIDERS: PCP Internal Medicine; Visit Provider Internal Medicine Nephrology
DX: Q61.3 Polycystic kidney, unspecified (principal); E11.9 Type 2 diabetes mellitus without complications; I10 Essential (primary) hypertension; Z12.5 Encounter for screening for malignant neoplasm of prostate
CPT/HCPCS: 36415; 80061; 80069; 82570; 84153; 84156; G0103

== ENCOUNTER 2025-01-25 10:07 | Outpatient (CLI) | payer MEDICARE, SELFPAY ==
[2025-01-25 11:06] LABS: Basophils Percent Auto 0.3 % (0.2-1.2); Eosinophils Absolute Auto 0.2 K/mm3 (0-0.3); Eosinophils Percent Auto 2.5 % (0-4.4); Hematocrit 43.4 % (42.0-52.0); Hemoglobin 13.9 g/dL (14.0-18.0); Immature Granulocyte Absolute 0.02 K/mm3 (0.00-0.031); Immature Granulocyte Percent A 0.3 % (0-0.5); Lymphocytes Percent Auto 11.9 % (18.3-44.2); Mean Corpuscular Hemoglobin 29.9 pg (26-34); Mean Corpuscular Volume 93.3 fl (80-100); Mean Platelet Volume 10.5 fl (7.4-10.4); Monocytes Absolute Auto 0.6 K/mm3 (0.1-0.6); Neutrophils Absolute Auto 5.8 K/mm3 (1.3-6.7); Platelet Count Result 229 k/mm3 (150-375); Red Blood Count 4.65 M/mm3 (4.6-6.20); Red Cell Distribution Width 13.3 % (11.5-14.5); White Blood Count 7.5 K/mm3 (4.5-10.0)
--- OUTSIDE RECORDS SUMMARY | 2025-01-25 11:26 | XMS_ITS | Clinical Summary ---
Author Organization [facility] Address [address] [place] [address] Phone Care Team Providers Care Body Piercer Name Role Phone Loki Singh DO Primary Care Provider Allergies Active Allergy Reactions Criticality Noted Date [...] (02/14/2021): Added automatically from request for surgery [id number] Disorder of ankle joint 11/28/2020 Overview (02/14/2021): Added automatically from request for surgery [id number] Inflamed seborrheic keratosis 04/25/2016 Neoplasm of uncertain [...] on file Legal Sex Male 8:[address] [facility] Gender Identity Not on file Sexual Orientation [...] 2025 07/26/20 20 Insurance [employer] Care Teams Body Piercer Relationship Specialty Start Date End Date Loki Singh DO [address] [place] [id number] PCP - General Internal Medicine 10/15/19
--- OUTSIDE RECORDS SUMMARY | 2025-01-25 11:26 | XMS_ITS | Referral Summary ---
Author Organization [facility] Orthopedic [facility] Center Address [address] [place] [address] Care Team Providers Care Carton Making Machine Operator Name Role Phone Loki Singh DO Primary Care Provider [phone] Allergies Active Allergy Reactions Criticality Noted Date [...] (01/14/2022): Added automatically from request for surgery [id number] Added automatically from request for surgery [id number] Ankle pain 11/28/2020 Overview (01/14/2022): Added automatically from request for surgery [id number] Added automatically from request for surgery [id number] Viral wart 04/25/2016 Other melanin hyperpigmentation 04/25/2016 [...] on file 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 Gender Identity Not on file Sexual Orientation [...] on file Medical Devices Implanted Type Area Insulation Inspector Device Identifier Shelf Expiration Date Model / Serial / Lot Greystripe [id number] Inbone Knee Right 5 Standard Tray Tibial - S.0 - [id number] Implanted:Qty: 1 on 12/26/2020 by Kurt Veliz MD at [facility] [employer] 12/18/[id number] / .0 / [id number] [employer] [id number] Inbone 18mm Base Ankle Stem Tibial Plasma - S.0 - [id number] Implanted:Qty: 1 on 12/26/2020 by Kurt Veliz MD at [facility] Medicine [employer] 12/03/[id number] / .0 / [id number] [employer] [id number] Inbone 16mm Mid Ankle Stem Tibial Plasma - S.0 - [id number] Implanted:Qty: 1 on 12/26/2020 by Kurt Veliz MD at [facility] [employer] 07/23/[id number] / .0 / [id number] [employer] [id number] Inbone 16mm Mid Ankle Stem Tibial Plasma - S.0 - [id number] Implanted:Qty: 1 on 12/26/2020 by Kurt Veliz MD at [facility] [employer] 07/24/20281999264999956 / .0 / [id number] [employer] [id number] Inbone 16mm Top Ankle Stem Tibial Plasma - S.0 - [id number] Implanted:Qty: 1 on 12/26/2020 by Kurt Veliz MD at [facility] Medicine [employer] 10/23/[id number] / .0 / [id number] [employer] [id number] Ankle 1 Large 10mm Stem Talar - S.0 - [id number] Implanted:Qty: 1 on 12/26/2020 by Kurt Veliz MD at [facility] [employer] [id number] 10/08/20282002295473702 / .0 / [id number] [employer] [id number] Inbone Sulcus Ankle 4 Dome Component Talar - S.0 - [id number] Implanted:Qty: 1 on 12/26/2020 by Kurt Veliz MD at [facility] [employer] [id number] 10/26/2028636261506 / .0 / [id number] [employer] [id number] Inbone 12mm Ankle 4+ Implant Fixation Everlast - S.0 - [id number] Implanted:Qty: 1 on 12/26/2020 by Kurt Veliz MD at [facility] [employer] [id number] 01/01/202822006926 / .0 / [id number] Procedures Procedure Name Priority Date/Time Associated Diagnosis Comments HEMOGLOBIN A1C Routine 12/19/2020 11:53 AM CDT Preoperative testing from Last 3 Months or Most Recently Relevant to Health Maintenance Results * (ABNORMAL) Hemoglobin A1c (12/19/2020 11:53 AM CDT) Hgb A1C 6.7(H) 4.0 - 5.6 % ÁLVARO [facility] Estimated Average Glucose 146 mg/dL ÁLVARO [facility] Comment: The ADA recommends reporting an estimated Average Glucose (eAG) with all Hemoglobin A1c results using the equation derived from a study of 507 normal and diabetic adults. Minority populations were underrepresented and children were not included. (Diabetes Care 31:3833-7257, 2008). The eAG is not equivalent to a fasting glucose. Blood specimen (specimen) 12/19/2020 11:53 AM CDT 12/19/2020 1:45 PM CDT Gladys Melgoza NP LAB BLOOD ORDERABLES Final Re sult ÁLVARO [facility] One [facility] Department [place] [address] from Last 3 Months or Most Recently Relevant to Health Maintenance [place] [place] [address] MEDICARE Advance Directives For more information, please contact: [phone] * Full Code (Latest Code Status on File) Date Activated Date Inactivated Comments 12/26/2020 4:38 PM 12/27/2020 7:53 PM Care Teams Carton Making Machine Operator Relationship Specialty Start Date End Date Loki Singh DO PCP - General Internal Medicine 08/25/20
--- OUTSIDE RECORDS SUMMARY | 2025-01-25 11:26 | XMS_ITS | Clinical Summary ---
Author Organization [facility] Orthopedic [facility]pa [facility] Address [address] [place] [address] Care Team Providers Care Director Of Instruction Name Role Phone Loki Singh DO Primary Care Provider [phone] Allergies Active Allergy Reactions Criticality Noted Date [...] (01/14/2022): Added automatically from request for surgery [id number] Added automatically from request for surgery [id number] Ankle pain 11/28/2020 Overview (01/14/2022): Added automatically from request for surgery [id number] Added automatically from request for surgery [id number] Viral wart 04/25/2016 Other melanin hyperpigmentation 04/25/2016 [...] on file 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 [employer] 12/18/[id number] / .0 / [id number] [employer] [id number] Inbone 18mm Base Ankle Stem Tibial Plasma - S.0 - [id number] Implanted:Qty: 1 on 12/26/2020 by Kurt Veliz MD at [facility] Medicine [employer] 12/03/[id number] / .0 / [id number] [employer] [id number] Inbone 16mm Mid Ankle Stem Tibial Plasma - S.0 - [id number] Implanted:Qty: 1 on 12/26/2020 by Kurt Veliz MD at [facility] Advanced [facility] [employer] 07/23/[id number] / .0 / [id number] [employer] [id number] Inbone 16mm Mid Ankle Stem Tibial Plasma - S.0 - [id number] Implanted:Qty: 1 on 12/26/2020 by Kurt Veliz MD at [facility] [employer] 07/24/[id number] / .0 / [id number] [employer] [id number] Inbone 16mm Top Ankle Stem Tibial Plasma - S.0 - [id number] Implanted:Qty: 1 on 12/26/2020 by Kurt Veliz MD at [facility] [employer] 10/23/[id number] / .0 / [id number] [employer] [id number] Ankle 1 Large 10mm Stem Talar - S.0 - [id number] Implanted:Qty: 1 on 12/26/2020 by Kurt Veliz MD at [facility] [employer] [id number] 10/08/[id number] / .0 / [id number] [employer] [id number] Inbone Sulcus Ankle 4 Dome Component Talar - S.0 - [id number] Implanted:Qty: 1 on 12/26/2020 by Kurt Veliz MD at [facility] [employer] [id number] 10/26/2028985830283 / .0 / [id number] [employer] [id number] Inbone 12mm Ankle 4+ Implant Fixation Everlast - S.0 - [id number] Implanted:Qty: 1 on 12/26/2020 by Kurt Veliz MD at [facility] [employer] [id number] 01/01/202849514870 / .0 / [id number] Procedures Procedure Name Priority Date/Time Associated Diagnosis [...] and children were not included. (Diabetes Care 31:2564-3325, 2008). The eAG is not equivalent to a fasting glucose. Blood specimen (specimen) 12/19/2020 11:53 AM CDT 12/19/2020 1:45 PM CDT us Gladys Melgoza NP LAB BLOOD ORDERABLES Final Re sult Á[facility] [place] [address] from Last 3 Months or Most Recently Relevant to Health Maintenance Insurance [employer] MEDICARE [facility] [place]IC[place] [address] [place] [address] MEDICARE Advance Directives For more information, please contact: [phone] * Full Code (Latest Code Status on File) Date Activated Date Inactivated Comments 12/26/2020 4:38 PM 12/27/2020 7:53 PM Care Teams Director Of Instruction Relationship Specialty Start Date End Date Loki Singh DO PCP - General Internal Medicine 08/25/20
--- OUTSIDE RECORDS SUMMARY | 2025-01-25 11:26 | XMS_ITS | CONTINUITY OF CARE DOCUMENT ---
Author Name akua fatima Address Unknown Organization [facility] Address [address] [place] [address] Phone [phone] Care Team Providers Care Assistant Paralegal Name Role Phone Tootie Kerns MD Unavailable LESLIE WU DO Unavailable LESLIE WU DO Unavailable [phone] INSURANCE PROVIDERS Payer name Policy type / Coverage type [place] red democrat ID [facility] [id number]
[2025-01-25 12:35] LABS: Hemoglobin A1C 5.5 % (<5.7)
== END 2025-01-25 10:08 | disposition home or self-care (01) ==
LOC: ANHGOSHLAB 10:08
PROVIDERS: PCP Internal Medicine; Visit Provider Internal Medicine
DX: D64.9 Anemia, unspecified (principal); E11.9 Type 2 diabetes mellitus without complications; D72.810 Lymphocytopenia
CPT/HCPCS: 36415; 82728; 83036; 85025

== ENCOUNTER 2025-08-05 11:01 | Outpatient (CLI) | payer MEDICARE, SELFPAY ==
--- OUTSIDE RECORDS SUMMARY | 2025-08-05 11:25 | XMS_ITS | Clinical Summary ---
Author Organization [facility] Orthopedic [facility] Address [id number] [place] [address] Care Team Providers Care Remote Sensing Specialist Name Role Phone Loki Singh DO Primary [...] (01/14/2022): Added automatically from request for surgery [id number] Added automatically from request for surgery [id number] Ankle pain 11/28/2020 Overview (01/14/2022): Added automatically from request for surgery [id number] Added automatically from request for surgery [id number] Viral wart 04/25/2016 Other melanin hyperpigmentation 04/25/2016 Nevus, non-neoplastic 04/25/2016 Neoplasm of uncertain behavior of skin 6 Inflamed seborrheic keratosis 04/25/2016 Immunizations Immunization Administration Dates Next Due Influenza, Unspecified 07/26/2020 Surgical History Surgery Date Site/Laterality Comments KNEE SURGERY Bilateral arthroplasty JOINT REPLACEMENT HIP SURGERY Right arthroplasty FOOT SURGERY COLONOSCOPY Medical History Medical History Date Comments Diabetes mellitus Hypertension Chronic kidney disease DJD (degenerative joint [...] on file 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 Gender Identity Not on file Sexual [...] on file Medical Devices Implanted Type Area Civil Celebrant Device Identifier Shelf Expiration Date Model / Serial / Lot [employer] [id number] Inbone Knee Right 5 Standard Tray Tibial - S.0 - [id number] Implanted:Qty: 1 on 12/26/2020 by Kurt Veliz MD at [facility] [employer] 12/18/[id number] / .0 / [id number] [employer] [id number] Inbone 18mm Base Ankle Stem Tibial Plasma - S.0 - [id number] Implanted:Qty: 1 on 12/26/2020 by Kurt Veliz MD at [facility] [employer] 12/03/[id number] / .0 / [id number] [employer] [id number] Inbone 16mm Mid Ankle Stem Tibial Plasma - S.0 - [id number] Implanted:Qty: 1 on 12/26/2020 by Kurt Veliz MD at [facility] [employer] 07/23/[id number] / .0 / [id number] [employer] [id number] Inbone 16mm Mid Ankle Stem Tibial Plasma - S.0 - [id number] Implanted:Qty: 1 on 12/26/2020 by Kurt Veliz MD at [facility] [employer] 07/24/[id number] / .0 / [id number] [employer] [id number] Inbone 16mm Top Ankle Stem Tibial Plasma - S.0 - [id number] Implanted:Qty: 1 on 12/26/2020 by Kurt Veliz MD at [facility] [employer] 10/23/[id number] / .0 / [id number] [employer] [id number] Ankle 1 Large 10mm Stem Talar - S.0 - [id number] Implanted:Qty: 1 on 12/26/2020 by Kurt Veliz MD at [facility] [employer] [id number] 10/08/[id number] / .0 / [id number] [employer] [id number] Inbone Sulcus Ankle 4 Dome Component Talar - S.0 - [id number] Implanted:Qty: 1 on 12/26/2020 by Kurt Veliz MD at [facility] [employer] [id number] 10/26/2028995290423 / .0 / [id number] [employer] [id number] Inbone 12mm Ankle 4+ Implant Fixation Everlast - S.0 - [id number] Implanted:Qty: 1 on 12/26/2020 by Kurt Veliz MD at [facility] [employer] [id number] 01/01/202813684292 / .0 / [id number] Insurance AET MEDICARE A[employer]NA MEDICARE A[employer] MEDICARE Advance Directives For more information, please contact: [phone] * Full Code (Latest Code Status on File) Date Activated Date Inactivated Comments 12/26/2020 4:38 PM 12/27/2020 7:53 PM Care Teams Remote Sensing Specialist Relationship Specialty Start Date End Date Loki Singh DO PCP - General Internal Medicine 08/25/20
[2025-08-05 14:22] LABS: Hematocrit 46.7 % (42.0-52.0); Hemoglobin 15.6 g/dL (14.0-18.0); Immature Granulocyte Percent A 0.4 % (0-0.5); Immature Reticulocyte Fraction 8.2 % (3.0-15.9); Lymphocytes Absolute Auto 0.95 K/mm3 (0.9-3.2); Mean Corpuscular HGB Conc 33.4 g/dl (32-36); Mean Corpuscular Hemoglobin 30.4 pg (26-34); Mean Corpuscular Volume 91.0 fl (80-100); Nucleated Red Blood Cells Absolute Auto 0.000 K/mm3 (0.0-0.012); Nucleated Red Blood Cells Perc 0.0 % (0.0-0.2); Platelet Count Result 196 k/mm3 (150-375); Red Blood Count 5.13 M/mm3 (4.6-6.20); Reticulocyte Hemoglobin Conten 34.5 pg (28.2-36.6); Reticulocytes Absolute 0.06 10^6/uL (0.02-0.10); White Blood Count 7.8 K/mm3 (4.5-10.0)
[2025-08-05 14:23] LABS: Alanine Aminotransferase 22 U/L (6-50); Albumin Level 4.1 g/dL (3.5-5.1); Alkaline Phosphatase 99 U/L (38-126); Anion Gap 7 mmol/L (4-12); Aspartate Amino Transferase 80 U/L (17-59); Bilirubin,Total 0.8 mg/dL (0.2-1.3); Blood Urea Nitrogen 20 mg/dL (9-20); Calcium 9.0 mg/dL (8.4-10.2); Carbon Dioxide 30 mmol/L (22-30); Chloride 102 mmol/L (98-107); Estimated Glomerular Filt Rate > 60; Glucose 97 mg/dL (65-110); Potassium 3.6 mmol/L (3.4-5.0); Sodium 139 mmol/L (137-145); Total Protein 6.7 g/dL (6.3-8.2)
[2025-08-05 15:10] LABS: Hemoglobin A1C 5.5 % (<5.7)
[2025-08-05 15:36] LABS: Vitamin B12 855.0 pg/mL (239-931)
== END 2025-08-05 11:02 | disposition home or self-care (01) ==
LOC: ANHGOSHLAB 11:02
PROVIDERS: PCP Internal Medicine; Visit Provider Internal Medicine
DX: N28.1 Cyst of kidney, acquired (principal); E11.9 Type 2 diabetes mellitus without complications; I10 Essential (primary) hypertension; D64.9 Anemia, unspecified
CPT/HCPCS: 36415; 80053; 82607; 82746; 83036; 85025; 85046